=== PATIENT | female | born 1980 | race Caucasian/White ===

== ENCOUNTER 2019-12-30 12:29 | Emergency (ER) | payer OTHER, SELFPAY ==
[2019-12-30 12:39] VITALS: BP 121/74; PULSE 72; RESP 16; TEMP 36.6; O2SAT 97
--- NOTE | 2019-12-30 13:20 | ED.BACK ---
HPI - Back Pain/Injury General Chief Complaint: Back Pain/Injury Stated Complaint: Back pain Time Seen by Provider: 12/30/19 13:21 Source: patient and RN notes reviewed Mode of arrival: ambulatory Limitations: no limitations History of Present Illness HPI Narrative: 39-year-old female presents with concern for low back pain, particularly on the right. Reports today before the pain happened she was doing heavy cleaning to her house, pulling weeds. Reports she woke melanite when she rolled over she felt a spasming in her right lower back. She denies abdominal pain, nausea and vomiting, dysuria, hematuria, frequency, urgency. Denies trauma, injury to the back. Reports she is been using ibuprofen with little relief. MD elicited complaint: back pain Related Data Home Medications Medication Instructions Recorded Confirmed sertraline 50 mg PO DAILY 12/30/19 12/30/19 Allergies Allergy/AdvReac Type Severity Reaction Status Date / Time No Known Allergies Allergy Verified 12/30/19 12:48 Review of Systems Review of Systems: Narrative: CONSTITUTIONAL: Denies malaise, chills, sweats, or fever. CARDIOVASCULAR: Denies chest pain, palpitations, or edema. RESPIRATORY: Denies cough or dyspnea. GASTROINTESTINAL: Denies abdominal pain, nausea, vomiting, diarrhea, bloody, or mucous stools. Denies loss of bowel function GENITOURINARY: Denies dysuria or hematuria. Denies loss of bladder function, perianal anesthesia SKIN: Denies rash or itching. MUSCULOSKELETAL: Reports right low back pain and spasming. Denies joint pain, or myalgia. NEUROLOGIC: Denies numbness, weakness All systems reviewed & are unremarkable except as noted in HPI and below PMFSH Comments At time of signature, agree with nursing past medical, surgical, social and family history. There is no relevant family history pertinent to the presenting complaint Exam Narrative: Exam Narrative: GENERAL: Well-appearing, well-nourished, and in no acute distress. HEAD: Normocephalic, atraumatic. EYES: PERRLA and EOMI. NECK: Supple. No lymphadenopathy. CHEST: Clear to auscultation. No respiratory distress. HEART: Regular rate and rhythm. Distal pulses palpable and equal, cap refill <3 seconds ABDOMEN: Soft, nontender, nondistended, normal active bowel sounds, no palpable or pulsatile masses. No CVA tenderness MUSCULOSKELETAL: Normal range of motion and strength in all extremities; 5/5 strength with hip flexion and extension, dorsiflexion and extension, knee flexion and extension, plantar flexion and extension. Normal sensation in dermatomal distributions with sensitivity to light touch and pain. No midline back tenderness to palpation. No paraspinal tenderness. Transfers from lying to sitting to standing. SKIN: Warm, dry, no rash. No ecchymosis, erythema, open wounds to back. NEURO: No focal deficits. Alert and oriented x3. Reflexes intact. Normal gait. PSYCH: Normal mood and affect Course Course Emergency Course: Patient is aware of diagnosis, understands and agrees to treatment plan. Anticipatory guidance given. Patient agrees to follow-up as directed and is aware of reasons to seek care at the emergency department. Portions of this record may have been created with voice recognition software Vital Signs Vital signs: Vital Signs Temperature 97.9 F 12/30/19 12:39 Pulse Rate 72 12/30/19 12:39 Respiratory Rate 16 12/30/19 12:39 Blood Pressure 121/74 12/30/19 12:39 Pulse Oximetry 97 12/30/19 12:39 Temperature 97.9 F 12/30/19 12:39 Pulse Rate 72 12/30/19 12:39 Respiratory Rate 16 12/30/19 12:39 Blood Pressure 121/74 12/30/19 12:39 Pulse Oximetry 97 12/30/19 12:39 Reviewed. MDM - Back Pain/Injury MDM Narrative Medical decision making narrative: No risk factors or findings concerning for epidural abscess, diskitis, vertebral osteomyelitis, cord compression, cauda equina, vertebral fracture or bone malignancy, AAA, or pyelonephritis. Patient ins
== END 2019-12-30 13:31 | disposition home or self-care (01) ==
PROVIDERS: Emergency Provider Nurse Practitioner
DX: M54.5 Low back pain (principal); F41.9 Anxiety disorder, unspecified
CPT/HCPCS: 99213; G0463

== ENCOUNTER 2022-09-21 10:01 | Outpatient (CLI) | payer OTHER, SELFPAY ==
--- NOTE | ~2022-09-21 | MM_ITS ---
EXAMINATION: MM screening ben BI w kristopher HISTORY: Screening TECHNIQUE: Craniocaudal and mediolateral oblique 3-D tomosynthesis images were obtained and synthetic 2-D images were generated. CAD analysis was submitted and interpreted. COMPARISON: No prior mammogram is available for comparison at this institution. BREAST PARENCHYMAL COMPOSITION: There are scattered areas of fibroglandular density. FINDINGS: There is no evidence of suspicious mass, calcification, or architectural distortion to sugg est malignancy in either breast. There has been no suspicious interval change. IMPRESSION: 1. No mammographic evidence of malignancy. 2. Recommend routine screening mammography in one year. BI-RADS Category 1: Negative Reviewed, dictated and finalized at location A.
== END 2022-09-21 10:02 | disposition home or self-care (01) ==
LOC: ANHIMG 10:07
PROVIDERS: Visit Provider Obstetrics & Gynecology
DX: Z12.31 Encounter for screening mammogram for malignant neoplasm of breast (principal)
CPT/HCPCS: 77063; 77067

== ENCOUNTER 2024-08-06 09:45 | Outpatient (CLI) | payer OTHER, SELFPAY ==
--- NOTE | ~2024-08-06 | MM_ITS ---
EXAMINATION: MM screening ben BI w kristopher HISTORY: Screening TECHNIQUE: Craniocaudal and mediolateral oblique 3-D tomosynthesis images were obtained and synthetic 2-D images were generated. CAD analysis was submitted and interpreted. COMPARISON: 09/21/2022 BREAST PARENCHYMAL COMPOSITION: Not dense: There are scattered areas of fibroglandular density. FINDINGS: There is no evidence of suspicious mass, calcification, or architectural distortion to sugg est malignancy in either breast. There has been no suspicious interval change. IMPRESSION: 1. No mammographic evidence of malignancy. 2. Recommend routine screening mammography in one year. BI-RADS Category 1: Negative Reviewed, dictated and finalized at location B. IONARY EDITOR
--- OUTSIDE RECORDS SUMMARY | 2024-08-06 10:01 | XMS_ITS ---
Care Plan - [facility] Created on: August 06, 2024 RAMIRO FLORES : 1980 Sex: Female Author Organization [facility] Address [address] [place] [address] Phone Care Team Providers Care Private Wealth Advisor Name Role Phone MARIAELENA PHAM Primary Care Provider Azul SPANGLER MD, GARCÍA C Unavailable [phone]
--- OUTSIDE RECORDS SUMMARY | 2024-08-06 10:01 | XMS_ITS | Encounter Summary ---
Author Organization [facility] Address [address] [place] [address] Care Team Providers Care Machine Sprayer Name Role Phone Unavailable Primary Care Provider Unavailabl e Encounter Details Date Type Department Care Team (Late st Contact Info) Description 11/20/2017 Lab Requisition [facility] Lab [address] [place] [id number] Marcelo Hargrove MD [facility] [address] Social History Tobacco Use Types Packs/Day Years Used Date Smoking Tobacco: Never Assessed Sex and Gender Information Value Date Recorded Sex Assigned at Not on file Gender Identity Not on file Sexual Orientation Not on file documented as of this encounter Plan of Treatment Not on file documented as of this encounter Procedures Procedure Name Priority Date/Time Associated Diagnosis Comments DERMATOPATHOLOGY Routine 11/19/2017 12:0 0 AM CDT documented in this encounter Results * DERMATOPATHOLOGY (11/19/2017 12:00 AM CDT) Case Report Dermatopathology Report Case: [id number] Authorizing Provider: Marcelo Hargrove MD Collected: 11/19/2017 12:00 AM Pathologist: Arun Mata MD Received: 11/20/2017 08:38 AM Specimen: Skin, left upper lid lateral 8 4:52 PM CDT DERMATOPATHOLOGY LABORATORY Final Diagnosis Specimen A. SKIN, left upper lid lateral: VERRUCA VULGARIS (B07.8) (see microscopic description) 8 4:52 PM CDT DERMATOPATHOLOGY LABORATORY Clinical History VV vs tag R/O SCCIS. 8 4:52 PM CDT DERMATOPATHOLOGY LABORATORY Gross Description Specimen A: Received is one formalin filled container labeled with the patient's name and designated left upper lid lateral. The specimen consists of a shave biopsy measuring [id number]. Jar 0. 4:52 PM T DERMATOPATHOLOGY LABORATORY Microscopic Description Specimen A. SKIN, left upper lid lateral: There is digitated epidermal hyperplasia, hypergranulosis, vacuolated granular layer cells, and compact hyperorthokeratosis . Additional deeper sections were obtained and reviewed. 4:52 PM T DERMATOPATHOLOGY LABORATORY Disclaimer An external and internal positive and negative controls are appropriate for the histochemical, immunohistochemical and immunofluorescence stain(s) in this case (if any), except where stated explicitly. The performance characteristics of the stain(s) cited in this report were developed and its performance characteristic determined by the Dermatopathology Laboratory at [facility]. These tests need not be, and therefore are not, approved by the [place] Food and Drug Administration. The tests are used for clinical purposes. Billing Codes Specimen Charges Stain Charges 35020 1 4:52 PM CDT DERMATOPATHOLOGY LABORATORY Embedded Images 4:52 PM T DERMATOPATHOLOGY LABORATORY Pathology/Cytolog y TISSUE SPECIMEN FROM SKIN / Unknown 11/19/2017 11/20/2017 8:38 AM CDT Marcelo Hargrove MD LAB - PATHOLOGY/CYTO LOGY ORDERABLES DERMATOPATHOLOGY LABORATORY [facility] - Department of Dermatology [address] [place] [address] 5th Floor Lab B [address] [phone] documented in this encounter Visit Diagnoses Not on filedocumented in this encounter
--- OUTSIDE RECORDS SUMMARY | 2024-08-06 10:01 | XMS_ITS | Clinical Summary ---
Author Organization [facility] Address [address] [place] [address] Phone Care Team Providers Care Wheel Shop Supervisor Name Role Phone David Kenny MD Primary Care Provider [phone] Allergies No known active allergies Medications sertraline (ZOLOFT) 50 MG Tablet Take 50 mg by mouth daily. Active montelukast (SINGULAIR) 10 MG Tablet Take 10 mg by mouth every evening. Active ondansetron (ZOFRAN) 4 MG Tablet Take 1 Tab by mouth every 8 hours as needed for Nausea - 1st line. 10 Tab 9 Active traMADol (ULTRAM) 50 MG Tablet Take 1 Tab by mouth every 8 hours as needed for Moderate or more severe pain. 15 Tab 9 Active raNITIdine (ZANTAC) 150 MG TabletIndication s:Gastric erosion, unspecified chronicity TAKE 1 TABLET BY MOUTH TWICE A DAY 180 Tab 9 Active Family History Medical History Relation Name Comments Cancer Father throat Cancer Paternal Grandfather colon Relation Name Status Comments Father Alive Mother Alive Paternal Grandfather Social History Tobacco Use Types Packs/Day Years Used Date Smoking Tobacco: Some Days Cigarettes Smokeless Tobacco: Never Alcohol Use Standard Drinks/Week Comments Yes 0 (1 standard drink = 0.6 oz pur e alcohol) occasional Comments No Sex and Gender Information Value Date Recorded Sex Assigned at Not on file Legal Sex Female 7:36 PM CDT Gender Identity Not on file Sexual Orientation Not on file Last Filed Vital Signs Vital Sign Reading Time Taken Comments Blood Pressure 94/64 09/23/2018 9:30 AM CDT Pulse 58 09/23/2018 9:30 AM CDT Temperature 36 C (96.8 F) 09/23/2018 9:30 AM CDT Respiratory Rate 15 09/23/2018 9:30 AM CDT Oxygen Saturation 100% 09/23/2018 9:30 AM CDT Inhaled Oxygen Concentration - - Weight 81.6 kg (180 lb) 09/23/2018 7:34 AM CDT Height 167.6 cm (5' 6 ) 09/23/2018 7:34 AM CDT Body Mass Index 29.05 09/23/2018 7:34 AM CDT Plan of Treatment Health Maintenance Due Date Last Done Comments Hepatitis C Virus (HCV) Screening 1980 TdaP Immunization 1980 Hepatitis B Immunization (1 of 3 - 19+ 3-dose series) 01/16/2000 Pap Smear 2002 Cervical Cancer Screening (CCS) 2011 HPV/Cotest 2011 Discussion re Starting/Frequ ency of Mammograms 2021 Influenza Immunization (#1) 2024 SARS-COV-2 Immunization ( season) 2024 06/19/2021 Respiratory Syncytial Virus (RSV) Immunization (Adult) (1 - 1-dose 75+ series) 01/16/2056 Meningococcal Immunization (ACWY) Aged Out No longer eligible based on patient's age to complete this topic Pneumococcal Immunization Combined Aged Out No longer eligible based on patient's age to complete this topic Rotavirus Immunization Aged Out No lo nger eligible based on patient's age to complete this topic Care Teams Wheel Shop Supervisor Relationship Specialty Start Date End Date David Kenny MD [address] [place] [address] PCP - General Cellular Tower Climber 04/24/15
--- OUTSIDE RECORDS SUMMARY | 2024-08-06 10:01 | XMS_ITS ---
Author Organization [facility] Address [address] [place] [address] Phone Care Team Providers Care Professor Of French Name Role Phone MARIAELENA PHAM Primary Care Provider Azul TEE MD, GARCÍA Morales Unavailable [phone] Problems Includes: Active, inactive, and resolved Problems All Visits Onset Date Resolved Date Provider Condition S tatus Age 35+ During 03/13/2017 Unknown GARCÍA TEE MD Resolved Last Documented On 03/19/2018 11:01AM ; [facility] Note: was Closed. Alcohol Use 03/13/2017 Unknown GARCÍA TEE MD Resolved Last Documented On 03/19/2018 11:01AM ; [facility] Note: was Closed. History of Depression 03/13/2017 Unknown GARCÍA TEE MD Resolved Last Documented On 03/19/2018 11:01AM ; [facility] Note: was Closed. History of Diabetes Mellitus 03/13/2017 Unknown GARCÍA TEE MD Resolved Last Documented On 03/19/2018 11:01AM ; [facility] Note: was Closed. History of Thromboembolic Disease 03/13/2017 Unknown GARCÍA TEE MD Resolved Last Documented On 03/19/2018 11:01AM ; [facility] Note: was Closed. Tobacco Use 03/13/2017 Unknown GARCÍA TEE MD Resolved Last Documented On 03/19/2018 11:01AM ; [facility] Note: was Closed. Elderly Multigravida (35 Or Older At Delivery) 02/13/2017 DAI GONZALES WHNP-BC Active Last Documented On 7 9:43AM ; [facility] Maternal Tobacco Use Complic ating Preg / / Puerperium 02/13/2017 Unknown DAI GONZALES WHNP-BC Resolved Last Documented On 7 9:42AM ; [facility] Peripartum History Delivery By Section 02/13/2017 DAI GONZALES WHNP-BC Active Last Documented On 02/13/2017 9:44AM ; [facility] Note: failure to descend Female Infertility 05/10/2015 Unknown DAI LEUNG WHNP-BC Resolved Last Documented On 02/13/2017 9:40AM ; [facility] Note: Unchanged Plan of Treatment Findings Encounter Date She will let us know if she has other problems in the meantime WELL WOMAN - ESTABLISHED PT with GARCÍA TEE MD 08/23/2023 Last Documented On 4 1:36PM ; [facility] Ordered follow-up visit 1 ye ar or as needed WELL WOMAN - ESTABLISHED PT with GARCÍA TEE MD 08/23/2023 Last Documented On 4 1:36PM ; [facility] She will let us know if she has other problems in the meantime WELL WOMAN - ESTABLISHED PT with GARCÍA TEE MD 01/19/2022 Last Documented On 2 3:43PM ; [facility] Ordered follow-up visit 1 ye ar or as needed WELL WOMAN - ESTABLISHED PT with GARCÍA TEE MD 01/19/2022 Last Documented On 2 3:43PM ; [facility] Ordered Clinical summary pro vided to patient POST OP VISIT with DAI GONZALES WHNP-BC 09/25/2017 Last Documented On 8 10:37AM ; [facility] Ordered Clinical summary pro vided to patient RETURN OB EXAM with DAI GONZALES WHNP-BC 08/30/2017 Last Documented On 8 9:02AM ; [facility] Ordered Clinical summary pro vided to patient RETURN OB EXAM with DAI GONZALES WHNP-BC 08/16/2017 Last Documented On 8 2:05PM ; [facility] Ordered Clinical summary pro vided to patient RETURN OB EXAM with DAI GONZALES NP-BC 07/05/2017 Last Documented On 8 10:40AM ; [facility] Ordered Clinical summary pro vided to patient RETURN OB EXAM with DAI GONZALES NP-BC 06/05/2017 Last Documented On 7 9:01AM ; [facility] Ordered Clinical summary pro vided to patient RETURN OB EXAM with DAI GONZALES NP-BC 04/10/2017 Last Documented On 7 9:20AM ; [facility] Ordered Clinical summary pro vided to patient MISSED MENSES with DAI GONZALES NP-BC 02/13/2017 Last Documented On 7 10:03AM ; [facility] Pending Tests Order Diagnosis Results Due Ordering P rovider Radiology @ other - *MAMMOGRAPHY SCREENING MAMMOGRAM Encntr screen mammogram for malignant neoplasm of breast 10/06/23 GARCÍA TEE MD Last Documented On 4 1:36PM ; [facility] Instructions to patient Instructions for patient : B reast Self Exam discussed Last Documented On 4 1:20PM ; [facility] Intervention and counseling on cessation of tobacco use Last Documented On 4 1:04PM ; [facility] Instructions for patient : B reast Self Exam discussed Last Documented On 2 3:14PM ; [facility] Intervention and counseling on cessation of tobacco use Last Documented On 2 3:18PM ; [facility] Instructions for patient : B reast Self Exam discussed and technique reviewed Last Documented On 1 9:01AM ; [facility] Intervention and counseling on cessation of tobacco use Last Documented On 1 8:53AM ; [facility] Instructions for patient : B reast Self Exam discussed and technique reviewed Last Documented On 0 1:07PM ; [facility] Intervention and counseling on cessation of tobacco use Last Documented On 0 1:10PM ; [facility] Instructions for patient : B reast Self Exam discussed and technique reviewed Last Documented On 9 4:23PM ; [facility] Intervention and counseling on cessation of tobacco use Last Documented On 9 4:26PM ; [facility] Instructions for patient : K eep the area around the vulva dry. Allow the area to have exposure to air. Avoid irritants such as fabric softeners and perfumed soaps.~ Last Documented On 7 10:01AM ; [facility] Advised d/c scented bath pro ducts Last Documented On 7 10:01AM ; [facility] Instructions for patient : B reast Self Exam discussed and technique reviewed Last Documented On 6 3:03PM ; [facility] Instructions for patient : B reast Self Exam discussed and technique reviewed Last Documented On 5 2:11PM ; [facility] Instructions for patient : B reast Self Exam discussed and technique reviewed Last Documented On 4 9:54AM ; [facility] Instructions for patient : B reast Self Exam discussed and technique reviewed Last Documented On 3 10:19AM ; [facility] Instructions for patient : B reast Self Exam discussed and technique reviewed Last Documented On 3 1:31PM ; [facility] Education and Decision Aids were provided during visit for: STD screening offered and de clined Last Documented On 4 1:20PM ; [facility] Bone Mineral Density Screeni ng guidelines reviewed Last Documented On 4 1:20PM ; [facility] Patient Education: Daily geno cium and vitamin D Last Documented On 4 1:20PM ; [facility] Patient Education: weight be aring exercise Last Documented On 4 1:20PM ; [facility] Colonoscopy screening guidel poonam discussed Last Documented On 4 1:20PM ; [facility] STD screening offered and de clined Last Documented On 2 3:14PM ; [facility] Bone Mineral Density Screeni ng guidelines reviewed Last Documented On 2 3:14PM ; [facility] Colonoscopy screening guidel poonam discussed Last Documented On 2 3:14PM ; [facility] Candidiasis Vulvovaginitis I nformation Sheet Given Last Documented On 7 10:01AM ; [facility] New OB form given to patient SAB precautions reviewed and pnv samples given. Advised H1N1 and seasonal flu vaccine Last Documented On 7 9:35AM ; [facility] She should be on a vitamin with at least 400 mcg of folic acid daily for at least 2-3 months prior to conception. She needs to quit smoking. Smoking may impare fertility and pt pt at higher risk for pre term labor, pre term delivery, intrautering growth restriction and low weight. She expresses understanding Last Documented On 3 10:30AM ; [facility] Counseling about preconcepti on The ACOG pamphlet Good Health Before is given and discussed. She will let us know when she misses menses and has symptoms for evaluation Last Documented On 3 10:31AM ; [facility] Assessments Includes: Assessments for all patient encounters Findings Encounter Date Fibrocystic disease of breast WELL WOMAN - ESTABLISHED PT with GARCÍA TEE MD 08/23/2023 Last Documented On 4 1:36PM ; [facility] NORMAL FEMALE EXAM WELL WOMAN - ESTABLISHED PT w ith GARCÍA TEE MD 08/23/2023 Last Documented On 4 1:36PM ; [facility] Screening Malig. Neoplasm Rectum WELL WO MAN - ESTABLISHED PT with GARCÍA TEE MD 08/23/2023 Last Documented On 4 1:36PM ; [facility] Fibrocystic disease of breast WELL WOMAN - ESTABLISHED PT with GARCÍA TEE MD 01/19/2022 Last Documented On 2 3:43PM ; [facility] NORMAL FEMALE EXAM WELL WOMAN - ESTABLISHED PT w ith GARCÍA TEE MD 01/19/2022 Last Documented On 2 3:43PM ; [facility] Screening Malig. Neoplasm Rectum WELL WO MAN - ESTABLISHED PT with GARCÍA TEE MD 01/19/2022 Last Documented On 2 3:43PM ; [facility] URINARY FREQUENCY WELL WOMAN - ESTABLISHED PT wi th GARCÍA TEE MD 01/19/2022 Last Documented On 2 3:43PM ; [facility] Fibrocystic disease of breast WELL WOMAN - ESTABLISHED PT with GARCÍA TEE MD 12/23/2020 Last Documented On 1 9:16AM ; [facility] NORMAL FEMALE EXAM WELL WOMAN - ESTABLISHED PT w ith GARCÍA TEE MD 12/23/2020 Last Documented On 1 9:16AM ; [facility] Fibrocystic disease of breast WELL WOMAN EXAM wi th GARCÍA TEE MD 12/21/2019 Last Documented On 0 1:18PM ; [facility] NORMAL FEMALE EXAM WELL WOMAN EXAM with GARCÍA BASILIO MD 12/21/2019 Last Documented On 0 1:18PM ; [facility] Dysfunctional uterine bleeding PROBLEM VISIT wit h GARCÍA TEE MD 07/02/2019 Last Documented On 0 9:14AM ; [facility] Fibrocystic disease of breast WELL WOMAN EXAM wi th GARCÍA TEE MD 12/16/2018 Last Documented On 9 4:35PM ; [facility] NORMAL FEMALE EXAM WELL WOMAN EXAM with GARCÍA BASILIO MD 12/16/2018 Last Documented On 9 4:35PM ; [facility] Routine history a nd physical POST VISIT with GARCÍA TEE MD 10/25/2017 Last Documented On 8 4:37PM ; [facility] POST OP VISIT POST OP VISIT with DAI PECK-DAPHNE 09/25/2017 Last Documented On 8 10:37AM ; [facility] POST OP VISIT PROBLEM VISIT with GARCÍA Walker MD 09/17/2017 Last Documented On 8 12:50PM ; [facility] Routine checkup (6 - 42 wk) RET URN OB EXAM with DAI PECK-DAPHNE 08/30/2017 Last Documented On 8 9:02AM ; [facility] Routine checkup (6 - 42 wk) RET URN OB EXAM with DAI PECK-DAPHNE 08/16/2017 Last Documented On 8 2:05PM ; [facility] Routine checkup (6 - 42 wk) RET URN OB EXAM with DAI PECK-DAPHNE 07/05/2017 Last Documented On 8 10:40AM ; [facility] Routine checkup (6 - 42 wk) RET URN OB EXAM with DAI GONZALES NP-BC 06/05/2017 Last Documented On 7 9:01AM ; [facility] Routine checkup (6 - 42 wk) RET URN OB EXAM with DAI GONZALES NP-BC 04/10/2017 Last Documented On 7 9:20AM ; [facility] Amenorrhea 9 weeks by LMP wi th EDC 4-4-18 MISSED MENSES with DAI GONZALES NP-BC 02/13/2017 Last Documented On 7 10:03AM ; [facility] Albertina albicans vulvovaginitis MISSED MENSES wi th DAI GONZALES NP-BC 02/13/2017 Last Documented On 7 10:03AM ; [facility] Fibrocystic disease of breast BEARINGIZER EXAM with GARCÍA TEE MD 04/09/2016 Last Documented On 6 3:16PM ; [facility] NORMAL FEMALE EXAM BEARINGIZER EXAM with GARCÍA TEE MD 04/09/2016 Last Documented On 6 3:16PM ; [facility] Female infertility CONSULTATION with GARCÍA PANIAGUA MD 05/10/2015 Last Documented On 5 3:21PM ; [facility] Fibrocystic disease of breast BEARINGIZER EXAM with GARCÍA TEE MD 04/05/2015 Last Documented On 5 2:44PM ; [facility] NORMAL FEMALE EXAM BEARINGIZER EXAM with GARCÍA TEE MD 04/05/2015 Last Documented On 5 2:44PM ; [facility] Breast fibrocystic disease BEARINGIZER EXAM with GARCÍA ROLDAN MD 03/09/2014 Last Documented On 4 10:10AM ; [facility] Contraceptive surveillance BEARINGIZER EXAM with GARCÍA ROLDAN MD 03/09/2014 Last Documented On 4 10:10AM ; [facility] NORMAL FEMALE EXAM BEARINGIZER EXAM with GARCÍA TEE MD 03/09/2014 Last Documented On 4 10:10AM ; [facility] Preconception Counseling BEARINGIZER EXAM with GARCÍA HERNÁNDEZ MD 03/09/2014 Last Documented On 4 10:10AM ; [facility] Breast fibrocystic disease BEARINGIZER EXAM with GARCÍA ROLDAN MD 03/05/2013 Last Documented On 3 10:43AM ; [facility] NORMAL FEMALE EXAM BEARINGIZER EXAM with GARCÍA TEE MD 03/05/2013 Last Documented On 3 10:43AM ; [facility] Preconception Counseling BEARINGIZER EXAM with GARCÍA HERNÁNDEZ MD 03/05/2013 Last Documented On 3 10:43AM ; [facility] Breast fibrocystic disease NEW BEARINGIZER EXAM with GARCÍA TEE MD 03/04/2012 Last Documented On 3 1:44PM ; [facility] Contraceptive surveillance NEW BEARINGIZER EXAM with GARCÍA TEE MD 03/04/2012 Last Documented On 3 1:44PM ; [facility] NORMAL FEMALE EXAM NEW BEARINGIZER EXAM with GARCÍA PANIAGUA MD 03/04/2012 Last Documented On 3 1:44PM ; [facility] Instructions Includes: Instructions for all patient encounters Instructions to patient Instructions for patient : B reast Self Exam discussed Last Documented On 4 1:20PM ; [facility] Intervention and counseling on cessation of tobacco use Last Documented On 4 1:04PM ; [facility] Instructions for patient : B reast Self Exam discussed Last Documented On 2 3:14PM ; [facility] Intervention and counseling on cessation of tobacco use Last Documented On 2 3:18PM ; [facility] Instructions for patient : B reast Self Exam discussed and technique reviewed Last Documented On 1 9:01AM ; [facility] Intervention and counseling on cessation of tobacco use Last Documented On 1 8:53AM ; [facility] Instructions for patient : B reast Self Exam discussed and technique reviewed Last Documented On 0 1:07PM ; [facility] Intervention and counseling on cessation of tobacco use Last Documented On 0 1:10PM ; [facility] Instructions for patient : B reast Self Exam discussed and technique reviewed Last Documented On 9 4:23PM ; [facility] Intervention and counseling on cessation of tobacco use Last Documented On 9 4:26PM ; [facility] Instructions for patient : K eep the area around the vulva dry. Allow the area to have exposure to air. Avoid irritants such as fabric softeners and perfumed soaps.~ Last Documented On 7 10:01AM ; [facility] Advised d/c scented bath pro ducts Last Documented On 7 10:01AM ; [facility] Instructions for patient : B reast Self Exam discussed and technique reviewed Last Documented On 6 3:03PM ; [facility] Instructions for patient : B reast Self Exam discussed and technique reviewed Last Documented On 5 2:11PM ; [facility] Instructions for patient : B reast Self Exam discussed and technique reviewed Last Documented On 4 9:54AM ; [facility] Instructions for patient : B reast Self Exam discussed and technique reviewed Last Documented On 3 10:19AM ; [facility] Instructions for patient : B reast Self Exam discussed and technique reviewed Last Documented On 3 1:31PM ; [facility] Education and Decision Aids were provided during visit for: STD screening offered and de clined Last Documented On 4 1:20PM ; [facility] Bone Mineral Density Screeni ng guidelines reviewed Last Documented On 4 1:20PM ; [facility] Patient Education: Daily geno cium and vitamin D Last Documented On 4 1:20PM ; [facility] Patient Education: weight be aring exercise Last Documented On 4 1:20PM ; [facility] Colonoscopy screening guidel poonam discussed Last Documented On 4 1:20PM ; [facility] STD screening offered and de clined Last Documented On 2 3:14PM ; [facility] Bone Mineral Density Screeni ng guidelines reviewed Last Documented On 2 3:14PM ; [facility] Colonoscopy screening guidel poonam discussed Last Documented On 2 3:14PM ; [facility] Candidiasis Vulvovaginitis I nformation Sheet Given Last Documented On 7 10:01AM ; [facility] New OB form given to patient SAB precautions reviewed and pnv samples given. Advised H1N1 and seasonal flu vaccine Last Documented On 7 9:35AM ; [facility] She should be on a vitamin with at least 400 mcg of folic acid daily for at least 2-3 months prior to conception. She needs to quit smoking. Smoking may impare fertility and pt pt at higher risk for pre term labor, pre term delivery, intrautering growth restriction and low weight. She expresses understanding Last Documented On 3 10:30AM ; [facility] Counseling about preconcepti on The ACOG pamphlet Good Health Before is given and discussed. She will let us know when she misses menses and has symptoms for evaluation Last Documented On 3 10:31AM ; [facility] Medical Equipment - Implanted Devices Includes: Current and historical Devices No Medical Equipment Recorded Medications Includes: Current and historical Medications Current Medications (continue as prescribed) Sertraline HCl 50MG Oral Tablet 07/17/2017 Provider: GARCÍA TEE MD Diagnosis: Encounter for christensen prvsn of normal , third trimester One tablet daily Last Documented On 07/17/2017 10:06AM By GARCÍA TEE MD ; [facility] Past Medications on file Bactrim DS 800-160 MG Oral Tablet 01/02/2022 - 022 Provider: Diagnosis: Last Documented On 01/19/2022 2:51PM By Delfino DICKERSON ; [facility] Macrobid 100 MG Oral Capsule 11/10/2020 - 12/23/2020 Christiano suero: GARCÍA TEE MD Diagnosis: One tablet twice a day (october) Last Documented On 1 8:51AM By MARIELOS DICKERSON ; [facility] ValACYclovir HCl 1GM Oral Tablet 07/17/2017 - 12/21/2019 Provider: GARCÍA TEE MD Diagnosis: Encounter for christensen prvsn of normal , third trimester One tablet daily Last Documented On 0 12:59PM By MARIELOS DICKERSON ; [facility] Terazol 7 0.4% Vaginal Cream 02/13/2017 - 03/15/2017 P rovider: DAI GONZALES [facility] Diagnosis: as directedsert one applicator full pv q hs x 7 nocs Last Documented On 7 10:13AM By DAI GONZALES [facility] ; [facility] Classic 28-0.8MG Oral Tablet 02/13/2017 - 07/2018 Provider: Diagnosis: Last Documented On 9 3:40PM By MARIELOS DICKERSON ; [facility] CVS Probiotic Capsule, conventional 04/09/2016 - 02/13 Provider: Diagnosis: Last Documented On 02/13/2017 9:41AM By MARY DICKERSON ; [facility] Calcium 600 MG Tablet 04/09/2016 - 02/13/2017 Provider : Diagnosis: Last Documented On 02/13/2017 9:41AM By MARY DICKERSON ; [facility] HM Vitamin B12 500 MCG Tablet 04/09/2016 - 02/13/2017 Provider: Diagnosis: Last Documented On 02/13/2017 9:41AM By MARY DICKERSON ; [facility] B-Complex/Vitamin C Tablet 04/09/2016 - 02/13/2017 Pro vider: Diagnosis: Last Documented On 02/13/2017 9:41AM By MARY DICKERSON ; [facility] ZyrTEC Allergy 10 MG Tablet 04/09/2016 - 02/13/2017 Pr ovider: Diagnosis: Last Documented On 02/13/2017 9:41AM By MARY DICKERSON ; [facility] Singulair 10 MG Tablet 04/05/2015 - 07/02/2019 Provide r: Diagnosis: Last Documented On 0 8:42AM By MARIELOS DICKERSON ; [facility] NuvaRing 0.12-0.015 MG/24HR VA RING 02/19/2014 - 03/19/2014 Provider: GARCÍA Petit Diagnosis: Sig: use vaginally x 3 weeks, out x 1 week Last Documented On 02/19/2014 2:15PM By GARCÍA TEE MD ; [facility] NuvaRing 0.12-0.015 MG/24HR VA RING 02/19/2014 - 02/19/2014 Provider: GARCÍA Petit Diagnosis: Sig: use vaginally x 3 weeks, out x 1 week Last Documented On 02/19/2014 2:15PM By GARCÍA TEE MD ; [facility] NuvaRing 0.12-0.015 MG/24HR VA RING 10/26/2013 - 02/19/2014 Provider: GARCÍA Petit Diagnosis: Sig: use vaginally x 3 weeks, out x 1 week Last Documented On 02/19/2014 11:56AM By GARCÍA TEE MD ; [facility] NuvaRing 0.12-0.015 MG/24HR VA RING 03/04/2012 - 10/26/2013 Provider: GARCÍA Petit Diagnosis: Sig: use vaginally x 3 weeks, out x 1 week Last Documented On 10/26/2013 4:01PM By GARCÍA TEE MD ; [facility] Sertraline HCl 50 MG OR TABS 03/04/2012 - 03/05/2013 P rovider: Diagnosis: Last Documented On 3 10:06AM By RAMIREZ DICKERSON ; [facility] NuvaRing 0.12-0.015 MG/24HR VA RING 03/03/2012 - 03/04/2012 Provider: GARCÍA Petit Diagnosis: Sig: use vaginally x 21 days, out x 7 days Last Documented On 03/04/2012 9:57AM By TERESA DICKERSON ; [facility] traMADol HCl 50 MG OR TABS 02/19/2012 - 03/05/2013 Pro vider: Diagnosis: Last Documented On 3 10:06AM By RAMIREZ DICKERSON ; [facility] Tobramycin-dexAMETHasone 0.3-0.1% OP SUSP 02/03/2012 - 03/04/2012 Provider: Diagnosis: Last Documented On 03/04/2012 9:59AM By TERESA DICKERSON ; [facility] NuvaRing 0.12-0.015 MG/24HR VA RING 02/03/2012 - 03/04 Provider: Diagnosis: Last Documented On 03/04/2012 10:37AM By GARCÍA TEE MD ; [facility] Triamcinolone Acetonide 0.1% EX CREA 02/03/2012 - 02/15 Provider: Diagnosis: Last Documented On 03/04/2012 9:57AM By TERESA DICKERSON ; [facility] Sertraline HCl 50 MG OR TABS 02/03/2012 - 03/04/2012 Christiano álvarezder: Diagnosis: Last Documented On 03/04/2012 9:58AM By TERESA DICKERSON ; [facility] Omeprazole-Sodium Bicarbonate 40-1100 MG OR CAPS 02/03/2012 - 03/09/2014 Provider: Diagnosis: Last Documented On 03/09/2014 9:48AM By LAWRENCE KOHLER LPN ; [facility] Medications Administered Includes: Administered Medications in patient's chart Medications Administered Diagnosis Date Pro vider Fluzone Quadrivalent 0.5 ML IM JOSIAH Encounter for immunization 04/10/2017 DAI GONZALES [facility]- Last Documented On 7 9:19AM By MARY DICKERSON ; [facility] Vital Signs Includes: Vital Signs from 08/06/2023 through 08/06/2024 Vital Name 08/23/2023 12:51P Blood Pressure Sitting (mmHg) 112/78 Temp-Oral (F) 98 Height (in) 66 Weight (lb) 201.6 Body Mass Index 32.5 Body Surface Area 2 Last Documented: On 08/23/2023 1:01PM ; [facility] Results Includes: Results from 08/06/2023 through 08/06/2024 LIQUID BASED PAP W HPV [facility] Laboratory Ordered by GARCÍA TEE MD on 08/23/19 [address] [place], [address] Collected: 08/23/2023 Report ed: 08/28/2023 09:06 tel: Last Documented On 4 9:18AM ; [facility] Reviewed on 11/13/2023; All test results are final unless otherwise noted. HPV mRNA E6/E7 Not Detected (Not Detected) N (Normal) Last Documented On 4 5:48PM ; [facility] Note: Methodology: Extrusion Technician-Mediate d AmplificationThis assay detects E6/E7 viral messenger RNA (mRNA) from 14high-risk HPV types (16,18,31,33,35,39,45,51,52,56,58,59,66,68).Cervical sources are required for HPV testing.If a vaginal source from a patient who has had atotal hysterectomy with removal of cervix wassubmitted, please contact the testing laboratoryfor alternative testing options.For additional information, please refer tohttp://education.Learn It Live/faq/QMP426v2(This link if provided for information/educational purposes only.)THIS TEST WAS PERFORMED AT:[facility] [address] [address]ZVJRXVCJORDAN THEODORE MDEXPLANATORY NOTE:The Pap is a screening test for cervical cancer. It isnot a diagnostic test and is subject to false negativeand false positive results. It is most reliable when asatisfactory sample, regularly obtained, is submittedwith relevant clinical findings and history, and whenthe Pap result is evaluated along with historic andcurrent clinical information.THIS TEST WAS PERFORMED AT:[facility] [address] [address]DGTMQNDMAURICIO CASTILLOesponsible Observer: (rfl) LIQUID BASED PAP W HPV See Note None Last Documented On 4 5:48PM ; [facility] Note: None given07/31/2407WNLCervi xSatisfactory for evaluation.Endocervical/transformation zone componentpresent.Cytology Results: Negative for intraepitheliallesion or malignancy.This Pap test has been evaluated with computerassisted technology.SRR, CT(ASCP)CT Screening Location: [address] [address]Npbvahypsyj Observer: (ARC) PAP SMEAR ABNORMAL? NO None Last Documented On 4 5:48PM ; [facility] Note: Responsible Observer: (ARC) Reported Physicians [facility] Franny johnson Ordered by GARCÍA TEE MD on 08/23/19 [address] [facility], [place], [address] Collected: 08/23/2023 Report ed: 08/28/2023 09:06 tel: Last Documented On 4 9:18AM ; [facility] Reviewed on 11/13/2023; All test results are final unless otherwise noted. Reported Physicians See Note None Last Documented On 11/12/2023 5:48PM ; [facility] Note: Reported Physicians:Ordering: García Tee CAttending: GARCÍA TEE History of Present Illness History of Present Illness not supported for this document type No History of Present Illness Recorded Social History Description Last Updated Current smoker : about a pac k per week smoked since in her 20's 'One social weekend per month' NTQS 08/23/2023 Last Documented On 4 1:36PM ; [facility] Tobacco use 12/21/2019 Last Documented On 0 1:18PM ; [facility] Social history unchanged 12/16/2018 Last Documented On 9 4:35PM ; [facility] Alcohol use 12/16/2018 Last Documented On 9 4:35PM ; [facility] Exercising regularly 12/16/2018 Last Documented On 9 4:35PM ; [facility] Marital history 12/16/2018 Last Documented On 9 4:35PM ; [facility] Not using drugs 12/16/2018 Last Documented On 9 4:35PM ; [facility] Sexually active 12/16/2018 Last Documented On 9 4:35PM ; [facility] Sexually active 5 weeks 10/25 Last Documented On 8 4:37PM ; [facility] Smoking status : Former smoker 8 Last Documented On 8 10:37AM ; [facility] Procedures and Surgical History Includes: Procedures from 08/06/2023 through 08/06/2024 Procedures Code Diagnosis Performing Provider Service Location Service Date FIT TEST-SCREENING FOR FECAL OCCULT BLOOD (CLIA WAIVED) [address] Encounter for screening for malignant neoplasm of colon GARCÍA TEE MD [facility] 08/23/2023 Last Documented On 4 1:15PM ; [facility] Surgical History Last Updated History of tubal ligation 09/11/2017 with repeat c/s TK 12/23/2020 Last Documented On 1 9:16AM ; [facility] Recent change to surgical history 2018 Last Documented On 9 4:35PM ; [facility] Surgical / procedural histor y LEFT KNEE SURGERY ~tubes removed from both ears 12/2014 (placed about a year before) ~C/S with tubal 09/11/17 TCK ~Breast reduction 03/201812/16/2018 Last Documented On 9 4:35PM ; [facility] History of surgery c/s TCK 08/30/2017 Last Documented On 8 9:02AM ; [facility] Medical History Includes: Medical History in patient's chart Description Last Updated Last mammogram date: October or November 2022 WNL per pt at [facility] in [place] 08/23/2023 Last Documented On 4 1:36PM ; [facility] History of screening mammogr am was performed Baseline; October or November 2022 at [place] WNL per pt 08/23/2023 Last Documented On 4 1:36PM ; [facility] LMP: 07/31/2023 08/23/2023 Last Documented On 4 1:36PM ; [facility] Last pap smear date 01/19/2022 08/23/2023 Last Documented On 4 1:36PM ; [facility] Anxiety 01/19/2022 Last Documented On 2 3:43PM ; [facility] Depression 01/19/2022 Last Documented On 2 3:43PM ; [facility] Contraception: tubal with rpt section TK 12/23/2020 Last Documented On 1 9:16AM ; [facility] History of cervical Pap smear 12/21/2019 12/23/2020 Last Documented On 1 9:16AM ; [facility] Recent change in medical history 019 Last Documented On 9 4:35PM ; [facility] A colonoscopy was performed years ago Last Documented On 9 4:35PM ; [facility] Baby thriving C/S 09/11/17 AMH 39- 0/7 we eks 8# 1oz Dorothea Camilo 10/25/2017 Last Documented On 8 4:37PM ; [facility] Infant is bottle-feeding 10/25/2017 Last Documented On 8 4:37PM ; [facility] History of Pap smear done 04/09/201604/2018 Last Documented On 8 10:37AM ; [facility] Result: normal 09/25/2017 Last Documented On 8 10:37AM ; [facility] section x 2 09/17/2017 Last Documented On 8 12:50PM ; [facility] Status post tubal ligation 09/11/2017 TCK 09/17/2017 Last Documented On 8 12:50PM ; [facility] Sexually active with 1 partners in the l ast year 09/17/2017 Last Documented On 8 12:50PM ; [facility] Para 2 09/17/2017 Last Documented On 8 12:50PM ; [facility] 2 08/30/2017 Last Documented On 8 9:02AM ; [facility] History of depression MOB po st : meds for 3-4 months: zoloft: helped: no problems since then; MOB mom and sister and everyone on her maternal side 08/30/2017 Last Documented On 8 9:02AM ; [facility] Family History Includes: Family History in patient's chart Description Last Updated Paternal grandfather's histo ry of malignant neoplasm of large intestine pgf in his 60's 08/23/2023 Last Documented On 4 1:36PM ; [facility] dad- throat cancer 2009 remission and dx with different throat cancer 201712/16/2018 Last Documented On 9 4:35PM ; [facility] Maternal grandfather's history of diabet es mellitus maternal grandfather 12/16/2018 Last Documented On 9 4:35PM ; [facility] Spouse name: Antelmo 04/05/2015 Last Documented On 5 2:44PM ; [facility] Family history of diabetes mellitus mate rnal grandfather 04/05/2015 Last Documented On 5 2:44PM ; [facility] Family history of malignant neoplasm of the large intestine pgf in his 60's 06/29/2012 Last Documented On 3 1:44PM ; [facility] Review of Systems Review of Systems not supported for this document type No Review of Systems Recorded Mental Status Description Anxiety Functional Status No Functional Status Recorded Physical Exam Physical Exam not supported for this document type No Physical Exam Recorded Immunizations Includes: Immunizations in patient's chart Vaccine Dose # Date Site Reaction(s) Status Source Influenza (Quadrivalent)36 mo.& older PF 0.5ml (SD) 1 04/10/2017 Left Arm Complete (Administered) [facility] Last Documented On 7 9:17AM ; [facility] Allergies Includes: Active, inactive, and resolved Allergies Substance Type Reaction Onset Date Resolved Date Statu s Codeine Allergy 03/04/2012 Resolved Last Documented On 4 1:00PM ; [facility] Encounters Includes: Encounters from 08/06/2023 through 08/06/2024 Encounter Provider Location Date Check-In Time Check-Out Time Diagnosis WELL WOMAN - ESTABLISHED PT GARCÍA TEE MD [facility] 08/23/19 24 12:50PM 1:39PM Breast Fibrocystic Disease,Screen ing Malig. Neoplasm Rectum,Normal Female Exam Insurance Includes: Active Insurance Policies Plan Name Member ID Group # Subscriber Relationship Effect leandra Dates 1 - [employer] [facility] [id number] SANDRA ANTELMO Dias Clinical Notes Includes: Signed Clinical Notes starting from 07/06/2022 * Progress note Date Encounter Last Documented by 08/23/2023 WE[facility] WOMAN - ESTABLISHED PT Last documented on 08/23/2023; 1:36 PM, GARCÍA TEE MD; [facility] Active Problems & Conditions - Elderly Multigravida (35 Or Older At Delivery) - Peripartum History Delivery By Section - failure to descend Chief Complaint The Chief Complaint is: WWE and no c/o. History of Present Illness RAMIRO FLORES is a 43 year old female. - Allergy list reviewed - Medication list reviewed - Primary Care Provider: Dr Flowers Current Medication - Sertraline HCl 50MG Oral Tablet 50 MG One tablet daily, 16 days, 0 refills Past Medical/Surgical History Other: Anxiety Depression Reported: LMP: 07/31/2023, Last pap smear date 01/19/2022 result: normal, Last mammogram date: October or November 2022 WNL per pt at [facility] in [place], and Contraception: tubal with rpt section 09/11/2017 TK. Surgical / Procedural: Surgical / procedural history LEFT KNEE SURGERY tubes removed from both ears 12/2014 (placed about a year before) C/S with tubal 09/11/17 TCK Breast reduction 03/2018. : Baby thriving C/S 09/11/17 AMH 39- 0/7 weeks 8# kalina Camilo , 2, para 2, and history of the : section x 2. Sexual: Sexually active with 1 partners in the last year. Other: Screening mammogram was performed Baseline; October or November 2022 at [place] WNL per pt. Cervical Pap smear 12/21/2019 Diagnoses: Depression MOB post : meds for 3-4 months: zoloft: helped: no problems since then; MOB mom and sister and everyone on her maternal side Surgical: - Surgery c/s TCK - Tubal ligation 09/11/2017 with repeat c/s TK Social History Social history unchanged. Tobacco use: Current smoker: about a pack per week smoked since in her 20's 'One social weekend per month' NTQS. Alcohol: Alcohol use. Drug Use: Not using drugs. Habits: Exercising regularly. Marital: Marital history . Sexual: Sexually active 5 weeks . Family History Spouse name: Antelmo Dad- throat cancer 2010 remission and dx with different throat cancer 2018 Paternal grandfather's: Malignant neoplasm of large intestine pgf in his 60's Maternal grandfather's: Diabetes mellitus maternal grandfather Review Of Systems Gastrointestinal: No nausea, no vomiting, and no hematochezia. Genitourinary: No change in urinary frequency and no feelings of urinary urgency. No urinary loss of control and no incontinence. No dysuria, no stress incontinence, does not feel like bladder is falling out, no vaginal itching or burning, and no vaginal pain during intercourse. No vaginal dryness and no unexplained vaginal bleeding. Musculoskeletal: No arthralgias and no localized joint swelling. Physical Findings - Vitals taken 08/23/2023 12:51 pm BP-Sitting 112/78 mmHg Temp-Oral 98 F Height 66 in Weight 201 lbs 9.6 oz Body Mass Index 32.5 kg/m2 Body Surface Area 2 m2 Standard Measurements: - Patient was not observed to be obese. General Appearance: - Well developed. - Well nourished. - In no acute distress. Neck: Thyroid: - Showed no abnormalities. Lymph Nodes: - Supraclavicular lymph nodes were not enlarged. - Axillary lymph nodes were not enlarged. Breasts: General/bilateral: - Diffuse fibrous tissue in the breast(s). - Diffuse fibrous tissue was found in both breasts. Right Breast: - Nipple was normal. - No abnormal secretion. - No mass was found. - No tenderness. Left Breast: - Nipple was normal. - No abnormal secretion. - No mass was found. - No tenderness. Lungs: - Clear to auscultation. Cardiovascular: Heart Rate And Rhythm: - Normal. Murmurs: - No murmurs were heard. Edema: - Not present. Veins: - No spider veins. - No varicose veins seen. Back: - No right costovertebral angle tenderness. - No left costovertebral angle tenderness. Abdomen: Palpation: - Abdominal non-tender. - No mass was palpated in the abdomen. Liver: - Not enlarged. Spleen: - Not enlarged. Hernia: - No hernia was discovered. Urinary System: Bladder: - Normal. - Not distended. - Not tender. - Did not have a mass. - Incontinence was not demonstrated with heavy cough. Urethra: - Normal: no lesions. Genitalia: External: - Genitalia showed no abnormalities. - Genitalia exhibited no lesion. Pelvic: - No ovarian mass. Vagina: - Normal: no lesions. - No vaginal discharge was observed. - No cystocele was observed. - No rectocele was observed. Cervix: - Showed no lesion. - Did not demonstrate pain elicited by motion. Uterus: - Mobile. - Contour was not irregular. - Not enlarged. - Not tender. Uterine Adnexae: - Uterine adnexa was not tender. Rectovaginal: - Tissue was normal. Rectal: - Exam: normal. Rectum: - Normal. - Had no mass. Surgery: - Reduction procedure of both breasts Tests Laboratory-based Chemistry: Fecal Analysis: FIT Test-Fecal Occult negative. Pathology: Cytology: Cervical Pap smear. Assessment - Fibrocystic disease of breast - NORMAL FEMALE EXAM - Screening Malig. Neoplasm Rectum Previous Tests Pathology: Cytology: Cervical Pap smear 01/19/2022. Therapy - Intervention and counseling on cessation of tobacco use. - Clinical summary provided to patient. Counseling/Education - Instructions for patient: Breast Self Exam discussed - Patient Education: Daily calcium and vitamin D - Patient Education: weight bearing exercise - Colonoscopy screening guidelines discussed - STD screening offered and declined - Bone Mineral Density Screening guidelines reviewed Plan StartCited - Encntr screen mammogram for malignant neoplasm of breast Radiology @ other/*MAMMOGRAPHY: SCREENING MAMMOGRAM Instructions: screening mammogram; last 09/21/2022 at [place]; Please send a copy to PCP: kvng Salter. EndCited StartCited - Other Follow-up needs mammogram after 09/22/2023; return in one year for WWE (30 min) EndCited - Follow-up visit 1 year or as needed She will let us know if she has other problems in the meantime. Practice Management Use of tobacco assessment performed.
--- OUTSIDE RECORDS SUMMARY | 2024-08-06 10:01 | XMS_ITS | Clinical Summary ---
Author Organization [facility] Address [address] [place] [address] Phone Care Team Providers Care Wood Scaler Name Role Phone MARIAELENA PHAM Primary Care Provider Azul SPANGLER MD, GARCÍA Morales Unavailable [phone] Reason for Visit and Chief Complaint * PHONE CALL Problems Includes: Problems addressed during this encounter and other active Problems All Visits Onset Date Resolved Date Provider Condition S tatus Elderly Multigravida (35 Or Older At Delivery) 02/13/2017 DAI GONZALES WHNP-BC Active Last Documented On 7 9:43AM ; [facility] Peripartum History Delivery By Section 02/13/2017 DAI WARRENNP-BC Active Last Documented On 7 9:44AM ; [facility] Note: failure to descend Plan of Treatment Pending Tests Order Diagnosis Results Due Ordering Christiano suero Radiology @ other - *MAMMOGRAPHY SCREENING MAMMOGRAM Encntr screen mammogram for malignant neoplasm of breast 10/06/23 GARCÍA SPANGLER MD Last Documented On 4 1:36PM ; [facility] Assessments Includes: Assessments from this encounter No Assessments Recorded Medical Equipment - Implanted Devices Includes: Current Devices No Medical Equipment Recorded Medications Includes: Medications discussed during this encounter and other current Medications New / Renewed during this visit GARCÍA SPANGLER MD on 11/10/2020 Macrobid 100 MG Oral Capsule Provider: GARCÍA SPANGLER MD 7 day supply: 14 capsule, 0 refills Diagnosis: One tablet twice a day (may substitute) Pharmacy: [address], [address] - Last Documented On 1 8:51AM By MARIELOS DICKERSON ; [facility] Current Medications (continue as prescribed) Sertraline HCl 50MG Oral Tablet 07/17/2017 Provider: GARCÍA SPANGLER MD Diagnosis: Encounter for christensen prvsn of normal , third trimester One tablet daily Last Documented On 07/17/2017 10:06AM By GARCÍA SPANGLER MD ; [facility] Medications Administered Includes: Administered Medications from this encounter No Administered Medications Recorded Results Includes: Results discussed during this encounter No Results Recorded For Specified Dates History of Present Illness Includes: History of Present Illness from this encounter No History of Present Illness Recorded Social History No Social History Recorded - Smoking Status Unknown Medical History Includes: Medical History addressed during this encounter No Medical History Recorded Family History Includes: Family History addressed during this encounter No Family History Recorded Review of Systems Includes: Review of Systems from this encounter No Review of Systems Recorded Mental Status Includes: Mental Status from this encounter No Mental Status Recorded Functional Status Includes: Functional Status from this encounter No Functional Status Recorded Physical Exam Includes: Physical Exam from this encounter No Physical Exam Recorded Allergies Includes: Active Allergies Substance Type Reaction Onset Date Resolved Date Statu s Codeine Allergy 03/04/2012 Resolved Last Documented On 4 1:00PM ; [facility] Encounters Encounter Provider Location Date Check-In Time Check-Out Time Diagnosis * PHONE CALL GARCÍA SPANGLER MD [facility] 1 9:26AM 11:59PM Insurance Includes: Active Insurance Policies Plan Name Member ID Group # Subscriber Relationship Effect leandra Dates 1 - [facility] [id number] ANTELMO FLORES Clinical Notes Includes: Clinical Notes from this encounter No Clinical Notes Recorded
--- OUTSIDE RECORDS SUMMARY | 2024-08-06 10:01 | XMS_ITS | Patient Health Summary ---
Author Organization [facility] [employer] Address [address] [place] [address] Care Team Providers Care Integrated Pest Management Technician Name Role Phone Unavailable Primary Care Provider Unavailabl e Note from [facility],non-owned Affiliates and Associated Physician Practices is amultiple site organization consisting of ambulatory clinics and hospital sitesin [place], [place], [place] and [place]. This disclosure is being madepursuant to the Care Everywhere program and may not contain all information available regarding this patient. Last updated 18.[facility] [employer] Social History Tobacco Use Types Packs/Day Years Used Date Smoking Tobacco: Never Assessed Sex and Gender Information Value Date Recorded Sex Assigned at Not on file Gender Identity Not on file Sexual Orientation Not on file Procedures * DERMATOPATHOLOGY(Performed 11/19/2017) Results * DERMATOPATHOLOGY (11/19/2017 12:00 AM CDT) Case Report Dermatopathology Report Case: [id number] Authorizing Provider: Marcelo Hargrove MD Collected: 11/19/2017 12:00 AM Pathologist: Arun Mata MD Received: 11/20/2017 08:38 AM Specimen: Skin, left upper lid lateral 4:52 PM CDT DERMATOPATHOLOGY LABORATORY Final Diagnosis Specimen A. SKIN, left upper lid lateral: VERRUCA VULGARIS (B07.8) (see microscopic description) 4:52 PM CDT DERMATOPATHOLOGY LABORATORY Clinical History VV vs tag R/O SCCIS. 4:52 PM CDT DERMATOPATHOLOGY LABORATORY Gross Description Specimen A: Received is one formalin filled container labeled with the patient's name and designated left upper lid lateral. The specimen consists of a shave biopsy measuring [id number]. Jar 0. 4:52 PM CDT DERMATOPATHOLOGY LABORATORY Microscopic Description Specimen A. SKIN, left upper lid lateral: There is digitated epidermal hyperplasia, hypergranulosis, vacuolated granular layer cells, and compact hyperorthokeratosis . Additional deeper sections were obtained and reviewed. 4:52 PM CDT DERMATOPATHOLOGY LABORATORY Disclaimer An external and internal positive and negative controls are appropriate for the histochemical, immunohistochemical and immunofluorescence stain(s) in this case (if any), except where stated explicitly. The performance characteristics of the stain(s) cited in this report were developed and its performance characteristic determined by the Dermatopathology Laboratory at [facility]. These tests need not be, and therefore are not, approved by the [place] Food and Drug Administration. The tests are used for clinical purposes. Billing Codes Specimen Charges Stain Charges 14585 1 4:52 PM CDT DERMATOPATHOLOGY LABORATORY Embedded Images 4:52 PM CDT DERMATOPATHOLOGY LABORATORY Pathology/Cytolog y TISSUE SPECIMEN FROM SKIN / Unknown 11/19/2017 11/20/2017 8:38 AM CDT Marcelo Hargrove MD LAB - PATHOLOGY/CYTO LOGY ORDERABLES DERMATOPATHOLOGY LABORATORY [facility] - Department of Dermatology [address] [place] [address], [facility] [phone]
--- OUTSIDE RECORDS SUMMARY | 2024-08-06 10:01 | XMS_ITS | Referral Summary ---
Author Organization [facility] Address [address] [place] [address] Care Team Providers Care Intake Rn Name Role Phone Clifotn Salter MD Primary Care Provider + Encounters Date Type Department Care Team Description 07/07/2024 5:30 PM FIELD OPERATIONS MANAGER Office Visit [facility] [place] [address] [place] [address] Lillie Wang NP Viral URI (Primary Dx) from Last 3 Months Allergies Active Allergy Reactions Criticality Noted Date Comments Codeine Vomiting Low 07/02/2017 Medications montelukast (SINGULAIR) 10 mg tablet Take 1 tablet (10 mg total) by mouth daily Active prenat.vits,geno,min -iron-folic tablet Take 1 tablet by mouth daily. Active ibuprofen (ADVIL,MOTRIN) 200 mg tab/capIndications: Pain Take 2-3 tabs orally every 4-6 hours as needed for pain. 8 Active ondansetron ODT (ZOFRAN-ODT) 4 mg disintegrating tablet Take 1 tablet (4 mg total) by mouth every 8 (eight) hours as needed for nausea or vomiting for up to 20 doses 20 tablet 3 Active Active Problems No known active problems Immunizations Immunization Administration Dates Next Due Tdap 09/11/2017 Social History Tobacco Use Types Packs/Day Years Used Date Smoking Tobacco: Former Cigarettes Q uit: 07/02/2010 Smokeless Tobacco: Never Comments:already quit Alcohol Use Standard Drinks/Week Comments No 0 (1 standard drink = 0.6 oz pur e alcohol) Personal Safety Answer Date Recorded Have you ever been in or are you currently in a harmful physical or emotional relationship or is someone making you feel afraid or unsafe? Denies 03/09/2023 Comments No Sex and Gender Information Value Date Recorded Sex Assigned at Not on file Legal Sex Female 11:31 AM FIELD OPERATIONS MANAGER Gender Identity Not on file Sexual Orientation Not on file Last Filed Vital Signs Vital Sign Reading Time Taken Comments Blood Pressure 112/76 07/07/2024 5:30 PM FIELD OPERATIONS MANAGER Pulse 76 07/07/2024 5:30 PM FIELD OPERATIONS MANAGER Temperature 37.2 C (98.9 F) 07/07/2024 5:30 PM FIELD OPERATIONS MANAGER Respiratory Rate 18 07/07/2024 5:30 PM FIELD OPERATIONS MANAGER Oxygen Saturation 97% 07/07/2024 5:30 PM FIELD OPERATIONS MANAGER Inhaled Oxygen Concentration - - Weight 90.7 kg (200 lb) 07/07/2024 5:30 PM FIELD OPERATIONS MANAGER Height 167.6 cm (5' 6 ) 07/07/2024 5:30 PM FIELD OPERATIONS MANAGER Body Mass Index 32.28 07/07/2024 5:30 PM FIELD OPERATIONS MANAGER Plan of Treatment Not on file Procedures Procedure Name Priority Date/Time Associated Diagnosis Comments POC INFLUENZA A/B, COVID-19 ANTIGEN Routine 07/07/2024 6:01 PM FIELD OPERATIONS MANAGER Viral URI from Last 3 Months Results * POC Influenza A/B, COVID-19 antigen (07/07/2024 6:01 PM FIELD OPERATIONS MANAGER) Influenza A Ag, POC Negative Negative [facility] Influenza B Ag, POC Negative Negative [facility] COVID-19 Ag POC Presumptive Negative Presumptive Negative, Invalid [facility] Nasal 07/07/2024 6:01 PM FIELD OPERATIONS MANAGER us Lillie Wang NP POINT OF CARE TEST ORDERABLES Final Result [facility] [address] [place] [address], [facility] from Last 3 Months Insurance [facility] HMO [facility] HEALTH[facility]ARE HMO [facility] HE[facility] HMO [facility] HMO Advance Directives For more information, please contact: [phone] * Full Code (Latest Code Status on File) Date Activated Date Inactivated Comments 09/11/2017 9:29 AM 09/13/2017 1:35 PM * Full Code Date Activated Date Inactivated Comments 09/11/2017 5:47 AM 09/11/2017 9:29 AM Full CPR in case of cardiopulmonary arrest Care Teams Intake Rn Relationship Specialty [place] [id number] [place] [address] [facility] - General 10/26/21
--- OUTSIDE RECORDS SUMMARY | 2024-08-06 10:01 | XMS_ITS | Clinical Summary ---
Author Organization [facility] Address [address] [place] [address] Care Team Providers Care Manager Marketing Name Role Phone Clifton Salter MD Primary Care Provider + Allergies Active Allergy Reactions Criticality Noted Date [...] Active Active Problems No known active problems Encounters Date Type Department Care Team Description 07/07/2024 5:30 PM EXERCISE INSTRUCTOR Office Visit [facility] [place] [address] [place] [id number] Lillie Wang, IGNACIA Viral URI (Primary Dx) from Last 3 Months Immunizations Immunization Administration Dates Next Due Tdap 09/11/2017 Surgical History Surgery Date Site/Laterality Comments SECTION December 28, 2009 KNEE SURGERY Medical History Medical History Date Comments CTS (carpal tunnel syndrome) sin ce 2011ish but has not had surgery Varicella had chicken pox when she was 6 years old Social History Tobacco Use Types Packs/Day Years [...] on file Legal Sex Female 11:31 AM EXERCISE INSTRUCTOR Gender Identity Not on file Sexual Orientation Not on file Obstetrics History Para Term AB IAB SAB Ectopic Multiple Livin g Live Births 2 2 2 0 2 2 Date Outcome GA Total Labor Labor/2nd/3rd Weight Sex Type Anes PTL Yandy A1 A5 Name Clin Term 018 Term 39w 0d 0h 02m 0h 02m 3.668 kg (8 lb 1.4 oz) F CS-LT ranv Spinal N Livin g 8 9 LIANA ,GIRL Mathieu Nolasco MD Complications:None Delivery Location:This [facility] ([facility]) Last Filed Vital Signs Vital Sign Reading Time Taken Comments Blood Pressure 112/76 07/07/2024 5:30 PM EXERCISE INSTRUCTOR Pulse 76 07/07/2024 5:30 PM EXERCISE INSTRUCTOR Temperature 37.2 C (98.9 F) 07/07/2024 5:30 PM EXERCISE INSTRUCTOR Respiratory Rate 18 07/07/2024 5:30 PM EXERCISE INSTRUCTOR Oxygen Saturation 97% 07/07/2024 5:30 PM EXERCISE INSTRUCTOR Inhaled Oxygen Concentration - - Weight 90.7 kg (200 lb) 07/07/2024 5:30 PM EXERCISE INSTRUCTOR Height 167.6 cm (5' 6 ) 07/07/2024 5:30 PM EXERCISE INSTRUCTOR Body Mass Index 32.28 07/07/2024 5:30 PM EXERCISE INSTRUCTOR Plan of Treatment Health Maintenance Due Date Last Done Comments Breast Cancer Screening-Mammogram 1981 Cervical Cancer Screening 1981 Depression Screening 1981 Hepatitis C Screening 1981 Hepatitis B Screening 1999 Regular Well Visit/Exam 18-64 1999 Covid-19 Vaccine (2 - 4-2 5 season) 2024 06/19/2021 Influenza Vaccine (#1) 2024 04/10/2017 DTaP/Tdap/Td Vaccine (2 - Td or Tdap) 09/12/2027 09/11/2017 HPV Vaccines Aged Out No longer eligi ble based on patient's age to complete this topic Pneumococcal vaccine <65 Aged Out No longer eligible based on patient's age to complete this topic Procedures Procedure Name Priority Date/Time Associated Diagnosis Comments POC INFLUENZA A/B, COVID-19 ANTIGEN Routine 07/07/2024 6:01 PM EXERCISE INSTRUCTOR Viral URI from Last 3 Months Results * POC Influenza A/B, COVID-19 antigen (07/07/2024 6:01 PM EXERCISE INSTRUCTOR) Influenza A Ag, POC Negative Negative [facility] Influenza B Ag, POC Negative Negative [facility] COVID-19 Ag POC Presumptive Negative Presumptive Negative, Invalid [facility] Nasal 07/07/2024 6:01 PM EXERCISE INSTRUCTOR us Lillie Wang NP POINT OF CARE TEST ORDERABLES Final Result [facility] [address] [place] [address], [facility] from Last 3 Months Insurance [facility] HMO [facility] [employer]ETNA [facility] HMO Advance Directives For more information, please contact: [phone] * Full Code (Latest Code Status on File) Date Activated Date Inactivated Comments 09/11/2017 9:29 AM 09/13/2017 1:35 PM * Full Code Date Activated Date Inactivated Comments 09/11/2017 5:47 AM 09/11/2017 9:29 AM Full CPR in case of cardiopulmonary arrest Care Teams Manager Marketing Relationship Specialty [place] [id number] [facility] [address] [place] [address] PCP - General 10/26/21
--- OUTSIDE RECORDS SUMMARY | 2024-08-06 10:01 | XMS_ITS | Clinical Summary ---
Author Organization [facility] Address [address] [place] [address] Phone Care Team Providers Care Pulp Roller Name Role Phone MARIAELENA PHAM Primary Care Provider Azul SPANGLER MD, GARCÍA Morlaes Unavailable [phone] Reason for Visit and Chief Complaint * PHONE CALL Problems Includes: Problems addressed during this encounter and other active Problems Current Visit Onset Date Resolved Date Provider Conditio n Status History of Depression 03/13/2017 Unknown GARCÍA SPANGLER MD Resolved Last Documented On 03/19/2018 11:01AM ; [facility] Note: was Closed. Past Visits Onset Date Resolved Date Provider Condition Status Elderly Multigravida (35 Or Older At Delivery) 02/13/2017 DAI VERGARA Active Last Documented On 7 9:43AM ; [facility] Peripartum History Delivery By Section 02/13/2017 DAI VERGARA Active Last Documented On 7 9:44AM ; [facility] Note: failure to descend Plan of Treatment No Plan of Treatment Recorded Assessments Includes: Assessments from this encounter No Assessments Recorded Medical Equipment - Implanted Devices Includes: Current Devices No Medical Equipment Recorded Medications Includes: Medications discussed during this encounter and other current Medications Current Medications (continue as prescribed) Sertraline HCl 50MG Oral Tablet 07/17/2017 Provider: GARCÍA SPANGLER MD Diagnosis: Encounter for christensen prvsn of normal , third trimester One tablet daily Last Documented On 07/17/2017 10:06AM By GARCÍA SPANGLER MD ; [facility] Past Medications on file Terazol 7 0.4% Vaginal Cream 02/13/2017 - 03/15/2017 P rovider: DAI GONZALES IGNACIA-BC Diagnosis: as directedsert one applicator full pv q hs x 7 nocs Last Documented On 7 10:13AM By DAI GONZALES IGNACIA-BC ; [facility] NuvaRing 0.12-0.015 MG/24HR VA RING 02/19/2014 - 03/19/2014 Provider: GARCÍA Petit Diagnosis: Sig: use vaginally x 3 weeks, out x 1 week Last Documented On 02/19/2014 2:15PM By GARCÍA SPANGLER MD ; [facility] Medications Administered Includes: Administered Medications from this encounter No Administered Medications Recorded Results Includes: Results discussed during this encounter No Results Recorded For Specified Dates History of Present Illness Includes: History of Present Illness from this encounter HPI Pharmacy name:~location: [facility]. Social History No Social History Recorded - Smoking Status Unknown Procedures and Surgical History Surgical History Last Updated History of tubal ligation 09/11/2017 with repeat c/s TK 12/23/2020 Last Documented On 2 9:35AM ; [facility] Recent change to surgical history 2018 Last Documented On 2 9:35AM ; [facility] Surgical / procedural histor y LEFT KNEE SURGERY ~tubes removed from both ears 12/2014 (placed about a year before) ~C/S with tubal 09/11/17 TCK ~Breast reduction 03/201812/16/2018 Last Documented On 2 9:35AM ; [facility] History of surgery c/s TCK 08/30/2017 Last Documented On 2 9:35AM ; [facility] Medical History Includes: Medical History addressed during this encounter Description Last Updated LMP: 12/16/2020 08/23/2023 Last Documented On 2 9:35AM ; [facility] Last pap smear date 12/21/2019 08/23/2023 Last Documented On 2 9:35AM ; [facility] Contraception: tubal with rpt section TK 12/23/2020 Last Documented On 2 9:35AM ; [facility] History of cervical Pap smear 12/21/2019 12/23/2020 Last Documented On 2 9:35AM ; [facility] Recent change in medical history 019 Last Documented On 2 9:35AM ; [facility] A colonoscopy was performed years ago Last Documented On 2 9:35AM ; [facility] Baby thriving C/S 09/11/17 AMH 39- 0/7 we eks 8# 1oz Dorothea Camilo 10/25/2017 Last Documented On 2 9:35AM ; [facility] is bottle-feeding 10/25/2017 Last Documented On 2 9:35AM ; [facility] History of Pap smear done 04/09/201604/2018 Last Documented On 2 9:35AM ; [facility] Result: normal 09/25/2017 Last Documented On 2 9:35AM ; [facility] section x 2 09/17/2017 Last Documented On 2 9:35AM ; [facility] Status post tubal ligation 09/11/2017 TCK 09/17/2017 Last Documented On 2 9:35AM ; [facility] Sexually active with 1 partners in the l ast year 09/17/2017 Last Documented On 2 9:35AM ; [facility] Para 2 09/17/2017 Last Documented On 2 9:35AM ; [facility] 2 08/30/2017 Last Documented On 2 9:35AM ; [facility] History of depression MOB po st : meds for 3-4 months: zoloft: helped: no problems since then; MOB mom and sister and everyone on her maternal side 08/30/2017 Last Documented On 2 9:35AM ; [facility] Family History Includes: Family History addressed during this encounter Description Last Updated dad- throat cancer 2009 feroz ssion and dx with different throat cancer 2018 12/16/2018 Last Documented On 2 9:35AM ; [facility] Maternal grandfather's history of diabet es mellitus maternal grandfather 12/16/2018 Last Documented On 2 9:35AM ; [facility] Spouse name: Antelmo 04/05/2015 Last Documented On 2 9:35AM ; [facility] Family history of diabetes mellitus mate rnal grandfather 04/05/2015 Last Documented On 2 9:35AM ; [facility] Family history of malignant neoplasm of the large intestine pgf in his 60's 06/29/2012 Last Documented On 2 9:35AM ; [facility] Review of Systems Includes: Review of Systems [...] Resolved Last Documented On 4 1:00PM ; [facility] Encounters Encounter Provider Location Date Check-In Time Check-Out Time Diagnosis * PHONE CALL EUSEBIO PECK 01/02/2022 9:35AM 11:59PM Insurance Includes: Active Insurance Policies Plan Name Member ID Group # Subscriber Relationship Effect leandra Dates 1 - AETNA [facility] [id number] ANTELMO FLORES Clinical Notes Includes: Clinical Notes from this encounter No Clinical Notes Recorded
--- OUTSIDE RECORDS SUMMARY | 2024-08-06 10:01 | XMS_ITS | Clinical Summary ---
Author Organization [facility] Address [address] [place] [address] Care Team Providers Care Spray Rig Operator Name Role Phone Unavailable Primary Care Provider Unavailabl e Source Comments [facility],non-owned Affiliates and Associated Physician Practices is amultiple site organization consisting of ambulatory clinics and hospital sitesin [place], [place], [place] and [place]. This disclosure is being madepursuant to the Care Everywhere program and may not contain all information available regarding this patient. Last updated 18.[facility] Social History Tobacco Use Types Packs/Day Years Used Date Smoking Tobacco: Never Assessed Sex and Gender Information Value Date Recorded Sex Assigned at Not on file Gender Identity Not on file Sexual Orientation Not on file Plan of Treatment Health Maintenance Due Date Last Done Comments LIPID TESTING 1981 MAMMOGRAM 1981 PAP SMEAR 1981 HIV SCREENING 01/16/1996 HEPATITIS C SCREENING 01/11/1999 DTAP/TDAP/TD VACCINES (1 - Tdap) 01/16/2000 HEPATITIS B VACCINE (1 of 3 - 19+ 3-dose series) 01/16/2000 COVID-19 VACCINE ( - 2023-2 5 season) 2024 INFLUENZA VACCINE (#1) 2024 DEPRESSION SCREENING 06/17/2024 ZOSTER VACCINE (1 of 2) 2031 HIB VACCINE Aged Out No longer eligi ble based on patient's age to complete this topic HPV VACCINE Aged Out No longer eligi ble based on patient's age to complete this topic MENINGOCOCCAL (Group B) VACCINE Aged Out No longer eligible based on patient's age to complete this topic MENINGOCOCCAL VACCINE Aged Out No r[place] yocasta eligible based on patient's age to complete this topic PNEUMOCOCCAL VACCINE Aged Out No long er eligible based on patient's age to complete this topic
--- OUTSIDE RECORDS SUMMARY | 2024-08-06 10:01 | XMS_ITS | Clinical Summary ---
Author Organization [facility] Address [address] [place] [address] Phone Care Team Providers Care Construction Recruiter Name Role Phone MARIAELENA PHAM Primary Care Provider Azul SPANGLER MD, GARCÍA Morales Unavailable [phone] Reason for Visit and Chief Complaint The Chief Complaint is: WWE and no c/o Problems Includes: Problems addressed during this encounter and other active Problems Current Visit Onset Date Resolved Date Provider Conditio n Status Alcohol Use 03/13/2017 Unknown GARCÍA SPANGLER MD Resol ed Last Documented On 03/19/2018 11:01AM ; [facility] Note: was Closed. History of Depression 03/13/2017 Unknown GARCÍA SPANGLER MD Resolved Last Documented On 03/19/2018 11:01AM ; [facility] Note: was Closed. Tobacco Use 03/13/2017 Unknown GARCÍA SPANGLER MD Resolv ed Last Documented On 03/19/2018 11:01AM ; [facility] Note: was Closed. Past Visits Onset Date Resolved Date Provider Condition Status Elderly Multigravida (35 Or Older At Delivery) 02/13/2017 DAI PECK-BC Active Last Documented On 7 9:43AM ; [facility] Peripartum History Delivery By Section 02/13/2017 DAI WARRENNP-BC Active Last Documented On 7 9:44AM ; [facility] Note: failure to descend Plan of Treatment - Follow-up visit 1 year or as needed - Last Documented On 08/23/2023 1:36PM ; [facility] She will let us know if she has other problems in the meantime. - Last Documented On 08/23/2023 1:36PM ; [facility] Pending Tests Order Diagnosis Results Due Ordering P [facility] @ other - *MAMMOGRAPHY SCREENING MAMMOGRAM Encntr screen mammogram for malignant neoplasm of breast 10/06/23 GARCÍA SPANGLER MD Last Documented On 4 1:36PM ; [facility] Instructions to patient Instructions for patient : B reast Self Exam discussed Last Documented On 4 1:20PM ; [facility] Intervention and counseling on cessation of tobacco use Last Documented On 4 1:04PM ; [facility] Education and Decision Aids were provided during visit for: STD screening offered and de clined Last Documented On 4 1:20PM ; [facility] Bone Mineral Density Screeni ng guidelines reviewed Last Documented On 4 1:20PM ; [facility] Patient Education: Daily geno cium and vitamin D Last Documented On 4 1:20PM ; [facility] Patient Education: weight be aring exercise Last Documented On 4 1:20PM ; [facility] Colonoscopy screening guidel poonam discussed Last Documented On 4 1:20PM ; [facility] Assessments Includes: Assessments from this encounter Findings - Fibrocystic disease of breast - Last Documented On 08/23/2023 1:36PM ; [facility] - NORMAL FEMALE EXAM - Last Documented On 08/23/2023 1:36PM ; [facility] - Screening Malig. Neoplasm Rectum - Last Documented On 08/23/2023 1:36PM ; [facility] Instructions Includes: Instructions from this encounter Instructions to patient Instructions for patient : B reast Self Exam discussed Last Documented On 4 1:20PM ; [facility] Intervention and counseling on cessation of tobacco use Last Documented On 4 1:04PM ; [facility] Education and Decision Aids were provided during visit for: STD screening offered and de clined Last Documented On 4 1:20PM ; [facility] Bone Mineral Density Screeni ng guidelines reviewed Last Documented On 4 1:20PM ; [facility] Patient Education: Daily geno cium and vitamin D Last Documented On 4 1:20PM ; [facility] Patient Education: weight be aring exercise Last Documented On 4 1:20PM ; [facility] Colonoscopy screening guidel poonam discussed Last Documented On 4 1:20PM ; [facility] Medical Equipment - Implanted Devices Includes: Current Devices No Medical Equipment Recorded Medications Includes: Medications discussed during this encounter and other current Medications Current Medications (continue as prescribed) Sertraline HCl 50MG Oral Tablet 07/17/2017 Provider: GARCÍA SPANGLER MD Diagnosis: Encounter for christensen prvsn of normal , third trimester One tablet daily Last Documented On 07/17/2017 10:06AM By GARCÍA SPANGLER MD ; [facility] Past Medications on file Terazol 7 0.4% Vaginal Cream 02/13/2017 - 03/15/2017 P rovider: DAI VERGARA Diagnosis: as directedsert one applicator full pv q hs x 7 nocs Last Documented On 7 10:13AM By DAI VERGARA ; [facility] NuvaRing 0.12-0.015 MG/24HR VA RING 02/19/2014 - 03/19/2014 Provider: GARCÍA Petit Diagnosis: Sig: use vaginally x 3 weeks, out x 1 week Last Documented On 02/19/2014 2:15PM By GARCÍA SPANGLER MD ; [facility] Medications Administered Includes: Administered Medications from this encounter No Administered Medications Recorded Vital Signs Includes: Vital Signs from this encounter Vital Name 08/23/2023 12:51P Blood Pressure Sitting (mmHg) 112/78 Temp-Oral (F) 98 Height (in) 66 Weight (lb) 201.6 Body Mass Index 32.5 Body Surface Area 2 Last Documented: On 08/23/2023 1:01PM ; [facility] Results Includes: Results discussed during this encounter No Results Recorded For Specified Dates History of Present Illness Includes: History of Present Illness from this encounter BREE FLORES is a 43 year old female. - Allergy list reviewed - Medication list reviewed - Primary Care Provider: Dr Flowers Social History Description Last Updated Current smoker : about a pac k per week smoked since in her 20's 'One social weekend per month' NTQS 08/23/2023 Last Documented On 4 1:36PM ; [facility] Tobacco use 12/21/2019 Last Documented On 4 12:50PM ; [facility] Social history unchanged 12/16/2018 Last Documented On 4 12:50PM ; [facility] Alcohol use 12/16/2018 Last Documented On 4 12:50PM ; [facility] Exercising regularly 12/16/2018 Last Documented On 4 12:50PM ; [facility] Marital history 12/16/2018 Last Documented On 4 12:50PM ; [facility] Not using drugs 12/16/2018 Last Documented On 4 12:50PM ; [facility] Sexually active 12/16/2018 Last Documented On 4 12:50PM ; [facility] Sexually active 5 weeks 10/25 Last Documented On 4 12:50PM ; [facility] Smoking Status Unknown Procedures and Surgical History Includes: Procedures from this encounter Procedures Code Diagnosis Performing Provider Service Location Service Date FIT TEST-SCREENING FOR FECAL OCCULT BLOOD (CLIA WAIVED) 52067 Encounter for screening for malignant neoplasm of colon GARCÍA SPANGLER MD [facility] 08/23/2023 Last Documented On 4 1:15PM ; [facility] intervention and counseling 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 4000F Last Documented On 4 1:04PM ; [facility] use of tobacco assessment performed 1000F Last Documented On 4 1:04PM ; [facility] Clinical summary provided to patient Last Documented On 4 1:20PM ; [facility] cervical Pap smear 04449 Last Documented On 4 1:20PM ; [facility] history of cervical Pap smear 01/19/2022 51919 Last Documented On 4 12:51PM ; [facility] FIT Test-Fecal Occult negative 59488 Last Documented On 4 1:20PM ; [facility] Surgical History Last Updated History of tubal ligation 09/11/2017 with repeat c/s TK 12/23/2020 Last Documented On 4 12:50PM ; [facility] Surgical / procedural histor y LEFT KNEE SURGERY ~tubes removed from both ears 12/2014 (placed about a year before) ~C/S with tubal 09/11/17 TCK ~Breast reduction 03/201812/16/2018 Last Documented On 4 12:50PM ; [facility] History of surgery c/s TCK 08/30/2017 Last Documented On 4 12:50PM ; [facility] Medical History Includes: Medical History addressed during this encounter Description Last Updated Last mammogram date: October or November 2022 WNL per pt at [facility] in [place] 08/23/2023 Last Documented On 4 1:36PM ; [facility] History of screening mammogr am was performed Baseline; October or November 2022 at [place] WNL per pt 08/23/2023 Last Documented On 4 1:36PM ; [facility] LMP: 07/31/2023 08/23/2023 Last Documented On 4 1:36PM ; [facility] Last pap smear date 01/19/2022 08/23/2023 Last Documented On 4 1:36PM ; [facility] Anxiety 01/19/2022 Last Documented On 4 12:50PM ; [facility] Depression 01/19/2022 Last Documented On 4 12:50PM ; [facility] Contraception: tubal with rpt section TK 12/23/2020 Last Documented On 4 12:50PM ; [facility] History of cervical Pap smear 12/21/2019 12/23/2020 Last Documented On 4 12:50PM ; [facility] Baby thriving C/S 09/11/17 AMH 39- 0/7 we eks 8# 1oz Dorothea Camilo 10/25/2017 Last Documented On 4 12:50PM ; [facility] Result: normal 09/25/2017 Last Documented On 4 12:50PM ; [facility] section x 2 09/17/2017 Last Documented On 4 12:50PM ; [facility] Sexually active with 1 partners in the l ast year 09/17/2017 Last Documented On 4 12:50PM ; [facility] Para 2 09/17/2017 Last Documented On 4 12:50PM ; [facility] 2 08/30/2017 Last Documented On 4 12:50PM ; [facility] History of depression MOB po st : meds for 3-4 months: zoloft: helped: no problems since then; MOB mom and sister and everyone on her maternal side 08/30/2017 Last Documented On 4 12:50PM ; [facility] Family History Includes: Family History addressed during this encounter Description Last Updated Paternal grandfather's histo ry of malignant neoplasm of large intestine pgf in his 60's 08/23/2023 Last Documented On 4 1:36PM ; [facility] dad- throat cancer 2010 remission and dx with different throat cancer 2018 12/16/2018 Last Documented On 4 12:50PM ; [facility] Maternal grandfather's history of diabet es mellitus maternal grandfather 12/16/2018 Last Documented On 4 12:50PM ; [facility] Spouse name: Antelmo 04/05/2015 Last Documented On 4 12:50PM ; [facility] Review of Systems Includes: Review of Systems from this encounter Gastrointestinal: No nausea, no vomiting, and no [...] No arthralgias and no localized joint swelling. Mental Status Includes: Mental Status from this encounter Description Anxiety Functional Status Includes: Functional Status from this encounter No Functional Status Recorded Physical Exam Includes: Physical Exam from this encounter Allergies Includes: Active Allergies Substance Type Reaction Onset Date Resolved Date Statu s Codeine Allergy 03/04/2012 Resolved Last Documented On 1:00PM ; [facility] Encounters Encounter Provider Location Date Check-In Time Check-Out Time Diagnosis [facility] GARCÍA SPANGLER MD [facility] 08/23/19 24 12:50PM 1:39PM Breast Fibrocystic Disease,Screen ing Malig. Neoplasm Rectum,Normal Female Exam Insurance Includes: Active Insurance Policies Plan Name Member ID Group # Subscriber Relationship Effect leandra Dates 1 - NA [facility] [id number] ANTELMO FLORES Clinical Notes Includes: Clinical Notes from this encounter * Progress note Date Encounter Last Documented by 08/23/2023 [facility] Last documented on 08/23/2023; 1:36 PM, GARCÍA SPANGLER MD; [facility] Active Problems & Conditions - Elderly Multigravida [...] or November 2022 WNL per pt at [facility] in [place], and Contraception: tubal with rpt section 09/11/2017 TK. Surgical / Procedural: Surgical / procedural history LEFT KNEE SURGERY tubes removed from both ears 12/2014 (placed about a year before) C/S with tubal 09/11/17 TCK Breast reduction 03/2018. : Baby thriving C/S 09/11/17 AMH 39- 0/7 weeks 8# 1derek Camilo , 2, para 2, and history of the : section x 2. Sexual: Sexually active with 1 partners in the last year. Other: Screening mammogram was performed Baseline; October or November 2022 at [place] WNL per pt. Cervical Pap smear 12/21/2019 [...] weeks . Family History Spouse name: Antelmo Garay- throat cancer 2010 remission and dx with [...] breast - NORMAL FEMALE EXAM - Screening [facility]. Neoplasm Rectum Previous Tests Pathology: Cytology: Cervical [...] MAMMOGRAM Instructions: screening mammogram; last 09/21/2022 at [place]; Please send a copy to PCP: kvng Salter. EndCited StartCited - Other Follow-up needs mammogram after 09/22/2023; return in one year for WWE (30 min) EndCited - Follow-up visit 1 year or as needed She will let us know if she has other problems in the meantime. Practice Management Use of tobacco assessment performed.
--- OUTSIDE RECORDS SUMMARY | 2024-08-06 10:01 | XMS_ITS | Referral Summary ---
Author Organization [facility] Address [address] [place] [address] Care Team Providers Care Exhaust Emissions Automotive Technician Name Role Phone Unavailable Primary Care Provider Unavailabl e Source Comments [facility],non-owned Affiliates and Associated Physician Practices is amultiple site organization consisting of ambulatory clinics and hospital sitesin [place], [place], [place] and [place]. This disclosure is being madepursuant to the Care Everywhere program and may not contain all information available regarding this patient. Last updated 18.[facility] Tendr Social History Tobacco Use Types Packs/Day Years Used Date Smoking Tobacco: Never Assessed Sex and Gender Information Value Date Recorded Sex Assigned at Not on file Gender Identity Not on file Sexual Orientation Not on file Plan of Treatment Not on file
--- OUTSIDE RECORDS SUMMARY | 2024-08-06 10:01 | XMS_ITS | Clinical Summary ---
Author Organization [facility] Address [address] [place] [address] Phone Care Team Providers Care Director Apparel Name Role Phone MARIAELENA PHAM Primary Care Provider Azul SPANGLER MD, GARCÍA Morales Unavailable [phone] Reason for Visit and Chief Complaint The Chief Complaint is: WWE.. Pt states she called in last month with what she thought was UTI sx and was given an antibiotic, but she has not gotten better. She states she has a lot of pressure to urinate and some leakage.. No other concerns today Problems Includes: Problems addressed during this encounter and other active Problems Current Visit Onset Date Resolved Date Provider Conditio n Status Alcohol Use 03/13/2017 Unknown GARCÍA SPANGLER MD Resol ed Last Documented On 03/19/2018 11:01AM ; [facility] Note: was Closed. History of Depression 03/13/2017 Unknown GARCÍA SPANGLER MD Resolved Last Documented On 03/19/2018 11:01AM ; [facility] Note: was Closed. Tobacco Use 03/13/2017 Unknown GARCÍA SPANGLER MD Resolv ed Last Documented On 03/19/2018 11:01AM ; [facility] Note: was Closed. Past Visits Onset Date Resolved Date Provider Condition Status Elderly Multigravida (35 Or Older At Delivery) 02/13/2017 DAI PECK- Active Last Documented On 7 9:43AM ; [facility] Peripartum History Delivery By Section 02/13/2017 DAI PECK-BC Active Last Documented On 7 9:44AM ; [facility] Note: failure to descend Plan of Treatment - Follow-up visit 1 year or as needed - Last Documented On 01/19/2022 3:43PM ; [facility] She will let us know if she has other problems in the meantime. - Last Documented On 01/19/2022 3:43PM ; [facility] Pending Tests Order Diagnosis Results Due Ordering P rovider Radiology @ other - *MAMMOGRAPHY SCREENING MAMMOGRAM Encntr screen mammogram for malignant neoplasm of breast 02/02/22 GARCÍA SPANGLER MD Last Documented On 4 2:40PM ; [facility] Radiology @ other - *MAMMOGRAPHY SCREENING MAMMOGRAM Encntr screen mammogram for malignant neoplasm of breast 10/06/23 GARCÍA SPANGLER MD Last Documented On 4 1:36PM ; [facility] Instructions to patient Instructions for patient : B reast Self Exam discussed Last Documented On 2 3:14PM ; [facility] Intervention and counseling on cessation of tobacco use Last Documented On 2 3:18PM ; [facility] Education and Decision Aids were provided during visit for: STD screening offered and de clined Last Documented On 2 3:14PM ; [facility] Bone Mineral Density Screeni ng guidelines reviewed Last Documented On 2 3:14PM ; [facility] Colonoscopy screening guidel poonam discussed Last Documented On 2 3:14PM ; [facility] Assessments Includes: Assessments from this encounter Findings - URINARY FREQUENCY - Last Documented On 01/19/2022 3:43PM ; [facility] - Fibrocystic disease of breast - Last Documented On 01/19/2022 3:43PM ; [facility] - NORMAL FEMALE EXAM - Last Documented On 01/19/2022 3:43PM ; [facility] - Screening Malig. Neoplasm Rectum - Last Documented On 01/19/2022 3:43PM ; [facility] Instructions Includes: Instructions from this encounter Instructions to patient Instructions for patient : B reast Self Exam discussed Last Documented On 2 3:14PM ; [facility] Intervention and counseling on cessation of tobacco use Last Documented On 2 3:18PM ; [facility] Education and Decision Aids were provided during visit for: STD screening offered and de clined Last Documented On 2 3:14PM ; [facility] Bone Mineral Density Screeni ng guidelines reviewed Last Documented On 2 3:14PM ; [facility] Colonoscopy screening guidel poonam discussed Last Documented On 2 3:14PM ; [facility] Medical Equipment - Implanted Devices Includes: Current Devices No Medical Equipment Recorded Medications Includes: Medications discussed during this encounter and other current Medications Discontinued / Stopped on this date on 01/02/2022 Bactrim DS 800-160 MG Oral Tablet Provide r: Diagnosis: Last Documented On 01/19/2022 2:51PM By Delfino DICKERSON ; [facility] Current Medications (continue as prescribed) Sertraline HCl 50MG Oral Tablet 07/17/2017 Provider: GARCÍA SPANGLER MD Diagnosis: Encounter for christensen prvsn of normal , third trimester One tablet daily Last Documented On 07/17/2017 10:06AM By GARCÍA SPANGLER MD ; [facility] Past Medications on file Terazol 7 0.4% Vaginal Cream 02/13/2017 - 03/15/2017 [facility] Diagnosis: as directedsert one applicator full pv q hs x 7 nocs Last Documented On 7 10:13AM By DAI GONZALES IGNACIA- ; [facility] NuvaRing 0.12-0.015 MG/24HR VA RING 02/19/2014 - 03/19/2014 Provider: GARCÍA Petit Diagnosis: Sig: use vaginally x 3 weeks, out x 1 week Last Documented On 02/19/2014 2:15PM By GARCÍA SPANGLER MD ; [facility] Medications Administered Includes: Administered Medications from this encounter No Administered Medications Recorded Vital Signs Includes: Vital Signs from this encounter Vital Name 01/19/2022 02:51P Blood Pressure Sitting L 118/76 BP Cuff Size Regular Temp-Oral (F) 98.3 Height (in) 66 Weight (lb) 190.2 Body Mass Index (kg/m2) 30.7 Body Surface Area (m2) 2.0 Last Documented: On 01/19/2022 2:53PM ; [facility] Results Includes: Results discussed during this encounter No Results Recorded For Specified Dates History of Present Illness Includes: History of Present Illness from this encounter HPI RAMIRO FLORES is a 42 year old female. - Allergy list reviewed - Medication list reviewed - Primary Care Provider: Dr. Garcia - Urinary frequency Pt with persistent frequency and 'constant pressure' 'like i have a full bladder all the time'. Took Rx for Bactrim and did not see a difference Social History Description Last Updated Current smoker : about a pack per week s moked since in her 20's NTQS 01/19/2022 Last Documented On 2 3:43PM ; [facility] Tobacco use 12/21/2019 Last Documented On 2 2:46PM ; [facility] Social history unchanged 12/16/2018 Last Documented On 2 2:46PM ; [facility] Alcohol use 12/16/2018 Last Documented On 2 2:46PM ; [facility] Exercising regularly 12/16/2018 Last Documented On 2 2:46PM ; [facility] Marital history 12/16/2018 Last Documented On 2 2:46PM ; [facility] Not using drugs 12/16/2018 Last Documented On 2 2:46PM ; [facility] Sexually active 12/16/2018 Last Documented On 2 2:46PM ; [facility] Sexually active 5 weeks 10/25 Last Documented On 2 2:46PM ; [facility] Smoking Status Unknown Procedures and Surgical History Includes: Procedures from this encounter Procedures Code Diagnosis Performing Provider Service L ocation Service Date intervention and counseling on cessation of tobacco use 4000F Last Documented On 2 3:18PM ; [facility] use of tobacco assessment performed 1000F Last Documented On 2 2:47PM ; [facility] Clinical summary provided to patient Last Documented On 2 3:14PM ; [facility] cervical Pap smear 51302 Last Documented On 2 3:14PM ; [facility] FIT Test-Fecal Occult negative 06036 Last Documented On 2 3:14PM ; [facility] Surgical History Last Updated History of tubal ligation 09/11/2017 with repeat c/s TK 12/23/2020 Last Documented On 2 2:46PM ; [facility] Recent change to surgical history 2018 Last Documented On 2 2:46PM ; [facility] Surgical / procedural histor y LEFT KNEE SURGERY ~tubes removed from both ears 12/2014 (placed about a year before) ~C/S with tubal 09/11/17 TCK ~Breast reduction 03/201812/16/2018 Last Documented On 2 2:46PM ; [facility] History of surgery c/s TCK 08/30/2017 Last Documented On 2 2:46PM ; [facility] Medical History Includes: Medical History addressed during this encounter Description Last Updated Anxiety 01/19/2022 Last Documented On 2 3:43PM ; [facility] Depression 01/19/2022 Last Documented On 2 3:43PM ; [facility] LMP: 12/24/2021 01/19/2022 Last Documented On 2 3:43PM ; [facility] Last pap smear date 12/23/2020 01/19/2022 Last Documented On 2 3:43PM ; [facility] Contraception: tubal with rpt section TK 12/23/2020 Last Documented On 2 2:46PM ; [facility] Recent change in medical history 019 Last Documented On 2 2:46PM ; [facility] Baby thriving C/S 09/11/17 AMH 39- 0/7 we eks 8# 1oz Dorothea Ton 10/25/2017 Last Documented On 2 2:46PM ; [facility] Result: normal 09/25/2017 Last Documented On 2 2:46PM ; [facility] section x 2 09/17/2017 Last Documented On 2 2:46PM ; [facility] Sexually active with 1 partners in the l ast year 09/17/2017 Last Documented On 2 2:46PM ; [facility] Para 2 09/17/2017 Last Documented On 2 2:46PM ; [facility] 2 08/30/2017 Last Documented On 2 2:46PM ; [facility] History of depression MOB po st : meds for 3-4 months: zoloft: helped: no problems since then; MOB mom and sister and everyone on her maternal side 08/30/2017 Last Documented On 2 2:46PM ; [facility] Family History Includes: Family History addressed during this encounter Description Last Updated dad- throat cancer 2009 feroz ssion and dx with different throat cancer 2018 12/16/2018 Last Documented On 2 2:46PM ; [facility] Maternal grandfather's history of diabet es mellitus maternal grandfather 12/16/2018 Last Documented On 2 2:46PM ; [facility] Spouse name: Antelmo 04/05/2015 Last Documented On 2 2:46PM ; [facility] Family history of diabetes mellitus mate rnal grandfather 04/05/2015 Last Documented On 2 2:46PM ; [facility] Family history of malignant neoplasm of the large intestine pgf in his 60's 06/29/2012 Last Documented On 2 2:46PM ; [facility] Review of Systems Includes: Review of [...] Resolved Last Documented On 4 1:00PM ; [facility] Encounters Encounter Provider Location Date Check-In Time Check-Out Time Diagnosis WELL WOMAN - ESTABLISHED PT GARCÍA SPANGLER MD [facility] 01/20/20 22 2:44PM 3:37PM Breast Fibrocystic Disease,Screen ing Malig. Neoplasm Rectum,Normal Female Exam,Urinary Frequency Insurance Includes: Active Insurance Policies Plan Name Member ID Group # Subscriber Relationship Effect leandra Dates 1 - AETNA [facility] [id number] ANTELMO FLORES M Clinical Notes Includes: Clinical Notes from this encounter No Clinical Notes Recorded
--- OUTSIDE RECORDS SUMMARY | 2024-08-06 10:02 | XMS_ITS | Clinical Summary ---
Author Organization [facility] Address [address] [place] [address] Phone Care Team Providers Care Plumbing Inspector Name Role Phone MARIAELENA PHAM Primary Care Provider Azul SPANGLER MD, GARCÍA Morales Unavailable [phone] Reason for Visit and Chief Complaint The Chief Complaint is: WWE and no c/o Problems Includes: Problems addressed during this encounter and other active Problems Current Visit Onset Date Resolved Date Provider Conditio n Status Alcohol Use 03/13/2017 Unknown GARCÍA SPANGLER MD Resol ed Last Documented On 03/19/2018 11:01AM ; [facility] Note: was Closed. History of Depression 03/13/2017 Unknown GARCÍA SPANGLER MD Resolved Last Documented On 03/19/2018 11:01AM ; [facility] Note: was Closed. Tobacco Use 03/13/2017 Unknown GARCÍA SPANGLER MD Resol ed Last Documented On 03/19/2018 11:01AM ; [facility] Note: was Closed. Past Visits Onset Date Resolved Date Provider Condition Status Elderly Multigravida (35 Or Older At Delivery) 02/13/2017 DAI PECK-BC Active Last Documented On 7 9:43AM ; [facility] Peripartum History Delivery By Section 02/13/2017 DAI PECK-BC Active Last Documented On 7 9:44AM ; [facility] Note: failure to descend Plan of Treatment Return to the office in 1 year for follow up. Patient to call the office in the meantime if she has other problems or questions. - Last Documented On 12/23/2020 9:16AM ; [facility] Pending Tests Order Diagnosis Results Due Ordering Christiano suero Radiology @ other - *MAMMOGRAPHY SCREENING MAMMOGRAM Encntr screen mammogram for malignant neoplasm of breast 10/06/23 GARCÍA SPANGLER MD Last Documented On 4 1:36PM ; [facility] Instructions to patient Instructions for patient : B reast Self Exam discussed and technique reviewed Last Documented On 1 9:01AM ; [facility] Intervention and counseling on cessation of tobacco use Last Documented On 1 8:53AM ; [facility] Assessments Includes: Assessments from this encounter Findings - Fibrocystic disease of breast - Last Documented On 12/23/2020 9:16AM ; [facility] - NORMAL FEMALE EXAM - Last Documented On 12/23/2020 9:16AM ; [facility] Instructions Includes: Instructions from this encounter Instructions to patient Instructions for patient : B reast Self Exam discussed and technique reviewed Last Documented On 1 9:01AM ; [facility] Intervention and counseling on cessation of tobacco use Last Documented On 1 8:53AM ; [facility] Medical Equipment - Implanted Devices Includes: Current Devices No Medical Equipment Recorded Medications Includes: Medications discussed during this encounter and other current Medications Discontinued / Stopped on this date GARCÍA SPANGLER MD on 11/10/2020 Macrobid 100 MG Oral Capsule Provider: GARCÍA SPANGLER MD Diagnosis: Last Documented On 1 8:51AM By MARIELOS DICKERSON ; [facility] Current Medications (continue as prescribed) Sertraline HCl 50MG Oral Tablet 07/17/2017 Provider: GARCÍA SPANGLER MD Diagnosis: Encounter for christensen prvsn of normal , third trimester One tablet daily Last Documented On 07/17/2017 10:06AM By GARCÍA SPANGLER MD ; [facility] Past Medications on file Terazol 7 0.4% Vaginal Cream 02/13/2017 - 03/15/2017 Christiano suero: DAI GONZALES WHNP-BC Diagnosis: as directedsert one applicator full pv q hs x 7 nocs Last Documented On 7 10:13AM By [facility] ; [facility] NuvaRing 0.12-0.015 MG/24HR VA RING 02/19/2014 - 03/19/2014 Provider: GARCÍA Petit Diagnosis: Sig: use vaginally x 3 weeks, out x 1 week Last Documented On 02/19/2014 2:15PM By GARCÍA SPANGLER MD ; [facility] Medications Administered Includes: Administered Medications from this encounter No Administered Medications Recorded Vital Signs Includes: Vital Signs from this encounter Vital Name 12/23/2020 08:55A Temp-Oral (F) 98.3 Height (in) 66 Weight (lb) 182.375 Body Mass Index (kg/m2) 29.4 Body Surface Area (m2) 1.9 Last Documented: On 12/23/2020 8:55AM ; [facility] Results Includes: Results discussed during this encounter No Results Recorded For Specified Dates History of Present Illness Includes: History of Present Illness from this encounter BREE FLORES is a 40 year old female. - Allergy list reviewed - Medication reconciliation performed - Primary Care Provider: Dr Clifton Grace Social History Description Last Updated Current smoker : about a pack per week s moked since in her 20's 12/23/2020 Last Documented On 1 9:16AM ; [facility] Tobacco use 12/21/2019 Last Documented On 1 8:49AM ; [facility] Social history unchanged 12/16/2018 Last Documented On 1 8:49AM ; [facility] Alcohol use 12/16/2018 Last Documented On 1 8:49AM ; [facility] Exercising regularly 12/16/2018 Last Documented On 1 8:49AM ; [facility] Marital history 12/16/2018 Last Documented On 1 8:49AM ; [facility] Not using drugs 12/16/2018 Last Documented On 1 8:49AM ; [facility] Sexually active 12/16/2018 Last Documented On 1 8:49AM ; [facility] Sexually active 5 weeks 10/25 Last Documented On 1 8:49AM ; [facility] Smoking Status Unknown Procedures and Surgical History Includes: Procedures from this encounter Procedures Code Diagnosis Performing Provider Service L ocation Service Date intervention and counseling on cessation of tobacco use 4000F Last Documented On 1 8:53AM ; [facility] use of tobacco assessment performed 1000F Last Documented On 1 8:53AM ; [facility] Clinical summary provided to patient Last Documented On 1 9:01AM ; [facility] cervical Pap smear 03203 Last Documented On 1 9:01AM ; [facility] a colonoscopy was performed years ago Last Documented On 1 8:53AM ; [facility] Surgical History Last Updated History of tubal ligation 09/11/2017 with repeat c/s TK 12/23/2020 Last Documented On 1 9:16AM ; [facility] Recent change to surgical history 2018 Last Documented On 1 8:49AM ; [facility] Surgical / procedural histor y LEFT KNEE SURGERY ~tubes removed from both ears 12/2014 (placed about a year before) ~C/S with tubal 09/11/17 TCK ~Breast reduction 03/201812/16/2018 Last Documented On 1 8:49AM ; [facility] History of surgery c/s TCK 08/30/2017 Last Documented On 1 8:49AM ; [facility] Medical History Includes: Medical History addressed during this encounter Description Last Updated Contraception: tubal with rpt section TK 12/23/2020 Last Documented On 1 9:16AM ; [facility] Last pap smear date 12/21/2019 12/23/2020 Last Documented On 1 9:16AM ; [facility] LMP: 12/16/2020 12/23/2020 Last Documented On 1 9:16AM ; [facility] History of cervical Pap smear 12/21/2019 12/23/2020 Last Documented On 1 9:16AM ; [facility] A colonoscopy was performed years ago Last Documented On 1 8:49AM ; [facility] Baby thriving C/S 09/11/17 AMH 39- 0/7 we eks 8# 1oz Dorothea Camilo 10/25/2017 Last Documented On 1 8:49AM ; [facility] Result: normal 09/25/2017 Last Documented On 1 8:49AM ; [facility] section x 2 09/17/2017 Last Documented On 1 8:49AM ; [facility] Sexually active with 1 partners in the l ast year 09/17/2017 Last Documented On 1 8:49AM ; [facility] Para 2 09/17/2017 Last Documented On 1 8:49AM ; [facility] 2 08/30/2017 Last Documented On 1 8:49AM ; [facility] History of depression MOB po st : meds for 3-4 months: zoloft: helped: no problems since then; MOB mom and sister and everyone on her maternal side 08/30/2017 Last Documented On 1 8:49AM ; [facility] Family History Includes: Family History addressed during this encounter Description Last Updated dad- throat cancer 2009 feroz ssion and dx with different throat cancer 2018 12/16/2018 Last Documented On 1 8:49AM ; [facility] Maternal grandfather's history of diabet es mellitus maternal grandfather 12/16/2018 Last Documented On 1 8:49AM ; [facility] Spouse name: Antelmo 04/05/2015 Last Documented On 1 8:49AM ; [facility] Family history of malignant neoplasm of the large intestine pgf in his 60's 06/29/2012 Last Documented On 1 8:49AM ; [facility] Review of Systems Includes: Review of Systems from this encounter Systemic: No night sweats. Head: No headache. Breasts: No breast lump, no nipple discharge, and no pain in breast. Cardiovascular: No chest pain or discomfort and no palpitations. Pulmonary: No cough. Gastrointestinal: No nausea, no vomiting, no abdominal pain, and no melena. No diarrhea. Genitourinary: No hematuria and no increase in urinary frequency. No dysuria. No genital lesion and normal menses. Endocrine: Libido has not changed. Musculoskeletal: No muscle aches. Neurological: No dizziness. Skin: No skin lesions. Mental Status Includes: Mental Status from this encounter Description Oriented to time, place, and person Functional Status Includes: Functional Status from this encounter No Functional Status Recorded Physical Exam Includes: Physical Exam from this encounter Allergies Includes: Active Allergies Substance Type Reaction Onset Date Resolved Date Statu s Codeine Allergy 03/04/2012 Resolved Last Documented On 4 1:00PM ; [facility] Encounters Encounter Provider Location Date Check-In Time Check-Out Time Diagnosis WELL WOMAN - ESTABLISHED PT GARCÍA SPANGLER MD [facility] 12/24/19 21 8:45AM 9:16AM Breast Fibrocystic Disease,Normal Female Exam Insurance Includes: Active Insurance Policies Plan Name Member ID Group # Subscriber Relationship Effect leandra Dates 1 - AETNA [facility] [id number] ANTELMO FLORES M Clinical Notes Includes: Clinical Notes from this encounter No Clinical Notes Recorded
--- OUTSIDE RECORDS SUMMARY | 2024-08-06 10:02 | XMS_ITS | Clinical Summary ---
Author Organization [facility] Address [address] [place] [address] Phone Care Team Providers Care Emergency Department Coordinator Name Role Phone [facility], External Provider Primary Care Provider U navailable Allergies Active Allergy Reactions Criticality Noted Date Comments Codeine Nausea and Vomiting Low 01/03/2017 Medications montelukast (SINGULAIR) 4 mg Granules in Packet Take 4 mg by mouth daily at bedtime. Active sertraline (ZOLOFT) 50 mg tablet Take 50 mg by mouth daily. Active benzonatate (TESSALON) 200 mg capsule Take 1 Capsule (200 mg) by mouth 3 times daily as needed for Cough. 20 Capsule 07/23/2018 Active codeine-guaiFEN esin (CHERATUSSIN AC) 10-100 mg/5 mL Liquid Take 10 mL by mouth every 4 hours as needed for Cough. 120 mL 07/23/2018 Active Active Problems Problem Noted Date Diagnosed Date Dizziness 05/13/2017 Tobacco use 01/03/2017 Complicated migraine Social History Tobacco Use Types Packs/Day Years Used Date Smoking Tobacco: Former Cigarettes Smokeless Tobacco: Never Comments:smokes 1 pk per wee k Alcohol Use Standard Drinks/Week Comments No 0 (1 standard drink = 0.6 oz pur e alcohol) social (once a week) Comments No Sex and Gender Information Value Date Recorded Sex Assigned at Not on file Legal Sex Female 2:22 PM CDT Gender Identity Not on file Sexual Orientation Not on file Last Filed Vital Signs Vital Sign Reading Time Taken Comments Blood Pressure 106/69 07/23/2018 4:17 PM ACADEMIC ASSOCIATE Pulse 67 07/23/2018 4:17 PM ACADEMIC ASSOCIATE Temperature 36.8 C (98.2 F) 07/23/2018 4:17 PM ACADEMIC ASSOCIATE Respiratory Rate 16 07/23/2018 4:17 PM ACADEMIC ASSOCIATE Oxygen Saturation 97% 07/23/2018 4:17 PM ACADEMIC ASSOCIATE Inhaled Oxygen Concentration - - Weight 89.4 kg (197 lb) 07/23/2018 4:17 PM ACADEMIC ASSOCIATE Height 167.6 cm (5' 6 ) 05/13/2017 3:39 PM ACADEMIC ASSOCIATE Body Mass Index 31.8 05/13/2017 3:39 PM ACADEMIC ASSOCIATE Plan of Treatment Health Maintenance Due Date Last Done Comments DTAP/TDAP/TD VACCINES (1 - Tdap) 01/16/2000 HEPATITIS B VACCINES (1 of 3 - 19+ 3-dose series) 01/16/2000 CERVICAL CANCER SCREENING 2011 BREAST CANCER SCREENING 2021 INFLUENZA VACCINE (#1) 2024 HPV VACCINES Aged Out No longer eligi ble based on patient's age to complete this topic Insurance [employer] CHOICE POS II Care Teams Emergency Department Coordinator Relationship Specialty Start Date End Date [facility], External Provider [address] [place] [address] PCP - General 01/03/17
== END 2024-08-06 09:46 | disposition home or self-care (01) ==
LOC: ANHIMG 09:47
PROVIDERS: Visit Provider Obstetrics & Gynecology
DX: Z12.31 Encounter for screening mammogram for malignant neoplasm of breast (principal)
CPT/HCPCS: 77063; 77067

== ENCOUNTER 2025-03-16 08:25 | Outpatient (CLI) | payer OTHER, SELFPAY ==
--- OUTSIDE RECORDS SUMMARY | 2025-03-16 08:39 | XMS_ITS | Clinical Summary ---
Author Organization [facility] Address [address] [place] [address] Phone Care Team Providers Care Deburrer Name Role Phone [facility], External Provider Primary Care Provider U navailable [...] Comments Blood Pressure 106/69 07/23/2018 4:17 PM MILL WASHER Pulse 67 07/23/2018 4:17 PM MILL WASHER Temperature 36.8 C (98.2 F) 07/23/2018 4:17 PM MILL WASHER Respiratory Rate 16 07/23/2018 4:17 PM MILL WASHER Oxygen Saturation 97% 07/23/2018 4:17 PM MILL WASHER Inhaled Oxygen Concentration - - Weight 89.4 kg (197 lb) 07/23/2018 4:17 PM MILL WASHER Height 167.6 cm (5' 6) 05/13/2017 3:39 PM MILL WASHER Body Mass Index 31.8 05/13/2017 3:39 PM MILL WASHER Plan of Treatment Health Maintenance Due Date Last Done Comments DTAP/TDAP/TD VACCINES (1 - Tdap) 01/16/2000 HEPATITIS B VACCINES (1 of 3 - 19+ 3-dose series) 06/1999 HPV/Cotest (21-29) 2002 HPV VACCINES (1 - 3-dose SCDM series) 01/16/2008 CERVICAL CANCER SCREENING 2011 HPV/Cotest (30-65) 2011 PAP SMEAR 2011 BREAST CANCER SCREENING 2021 INFLUENZA VACCINE (#1) 2025 Insurance AET[employer] CHOICE POS II Care Teams Deburrer Relationship Specialty Start Date End Date [facility], External Provider [address] [place] [address] PCP - General 01/03/17
--- OUTSIDE RECORDS SUMMARY | 2025-03-16 08:39 | XMS_ITS | Clinical Summary ---
Author Organization [facility] Address [address] [place] [address] Phone Care Team Providers Care Marine Services Technician Name Role Phone David Kenny MD Primary Care Provider [phone] Allergies No known active allergies Medications sertraline [...] 7:34 AM CDT Height 167.6 cm (5' 6) 09/23/2018 7:34 AM CDT Body Mass Index 29.05 09/23/2018 7:34 AM CDT Plan of Treatment Health Maintenance Due Date Last Done Comments Hepatitis C Virus (HCV) Screening 1981 TdaP Immunization 1981 Hepatitis B Immunization (1 of 3 - 19+ 3-dose series) 01/16/2000 Pap Smear 2002 Human Papillomavirus (HPV) Immunization (1 - 3-dose SCDM series) 01/16/2008 Cervical Cancer Screening (CCS) 2011 HPV/Cotest 2011 Influenza Immunization (#1) 2025 SARS-COV-2 Immunization ( - 2024- season) 2025 06/19/2021 Respiratory Syncytial Virus (RSV) Immunization (Adult) (1 - 1-dose 75+ series) 01/16/2056 Meningococcal Immunization (ACWY) Aged Out No longer eligible based on patient's age to complete this topic Pneumococcal Immunization Combined Aged Out No longer eligible based on patient's age to complete this topic Rotavirus Immunization Aged Out No lo nger eligible based on patient's age to complete this topic Care Teams Marine Services Technician Relationship Specialty Start Date End Date David Kenny MD [address] [place] [address] PCP - General Pick Up Driver 04/24/15
--- OUTSIDE RECORDS SUMMARY | 2025-03-16 08:39 | XMS_ITS | Clinical Summary ---
Author Organization [facility] Address [address] [place] [address] Care Team Providers Care Nib Finisher Name Role Phone Clifton Salter MD Primary [...] Comments CTS (carpal tunnel syndrome) sin ce 2010ish but has not had surgery Varicella had [...] on file Legal Sex Female 11:31 AM TELEGRAPH LINEMAN Gender Identity Not on file Sexual Orientation [...] ranv Spinal N Livin g 8 9 SANDRA ,GIRL Mathieu Nolasco MD Complications:None Delivery Location:This [facility] ([facility]) Last Filed Vital Signs Vital Sign Reading Time Taken Comments Blood Pressure 112/76 07/07/2024 5:30 PM TELEGRAPH LINEMAN Pulse 76 07/07/2024 5:30 PM TELEGRAPH LINEMAN Temperature 37.2 C (98.9 F) 07/07/2024 5:30 PM TELEGRAPH LINEMAN Respiratory Rate 18 07/07/2024 5:30 PM TELEGRAPH LINEMAN Oxygen Saturation 97% 07/07/2024 5:30 PM TELEGRAPH LINEMAN Inhaled Oxygen Concentration - - Weight 90.7 kg (200 lb) 07/07/2024 5:30 PM TELEGRAPH LINEMAN Height 167.6 cm (5' 6) 07/07/2024 5:30 PM TELEGRAPH LINEMAN Body Mass Index 32.28 07/07/2024 5:30 PM TELEGRAPH LINEMAN Plan of Treatment Health Maintenance Due Date Last Done Comments Breast Cancer Screening-Mammogram 1981 Cervical Cancer Screening 1981 Depression Screening 1981 Hepatitis C Screening 1981 Hepatitis B Screening 1999 Regular Well Visit/Exam 18-64 1999 HPV Vaccines (1 - 3-dose SCD M series) 01/16/2008 Covid-19 Vaccine ( - 2024-2 6 season) 2025 06/19/2021 Influenza Vaccine (#1) 2025 04/10/2017 DTaP/Tdap/Td Vaccine (2 - Td or Tdap) 09/12/2027 09/11/2017 Pneumococcal vaccine <65 Aged Out No longer eligible based on patient's age to complete this topic Insurance [facility] HMO [facility] O Advance Directives For more information, please contact: [phone] * Full Code (Latest Code Status on File) Date Activated Date Inactivated Comments 09/11/2017 9:29 AM 09/13/2017 1:35 PM * Full Code Date Activated Date Inactivated Comments 09/11/2017 5:47 AM 09/11/2017 9:29 AM Full CPR in case of cardiopulmonary arrest Care Teams Nib Finisher Relationship Specialty [place] [address] [facility] [address] [place] [address] PCP - General 10/26/21
[2025-03-16 09:17] LABS: Hematocrit 42.8 % (37.0-47.0); Hemoglobin 14.3 g/dL (12.0-15.0); Mean Corpuscular HGB Conc 33.4 g/dl (32-36); Mean Corpuscular Hemoglobin 30.6 pg (26-34); Mean Corpuscular Volume 91.6 fl (80-100); Platelet Count Result 315 k/mm3 (150-375); Red Blood Count 4.67 M/mm3 (4.2-5.4); White Blood Count 6.3 K/mm3 (4.5-10.0)
[2025-03-16 10:06] LABS: Free T4 Free Thyroxine 1.17 ng/dL (0.78-2.19)
[2025-03-16 10:12] LABS: Thyroid Stimulating Hormone 1.560 uIU/mL (0.465-4.680)
== END 2025-03-16 08:26 | disposition home or self-care (01) ==
LOC: ANHLAB 08:27
PROVIDERS: PCP Internal Medicine Geriatric Medicine; Visit Provider Nurse Practitioner Family
DX: N92.0 Excessive and frequent menstruation with regular cycle (principal)
CPT/HCPCS: 36415; 84146; 84439; 84443; 85027

== ENCOUNTER 2025-05-19 01:08 | Day surgery (SDC) | payer OTHER, SELFPAY ==
--- OUTSIDE RECORDS SUMMARY | 2024-10-16 14:45 | XMS_ITS | Continuity of Care Document ---
Author Organization [facility] Address [address] [place] [address] Phone Care Team Providers Care Hand Laminator Name Role Phone Mal PT,MPT,ATC, Cristopher Unavailable Unavai lable Procedures Procedure Date PT Evaluation Moderate Complexity Therapeutic Activities Canalith Repositioning Procedure 2024 Advance Directives Directive Yes / No Effective Date File Name No Information Encounters Encounter Description Practice Location Reason(s) For Visit Diagnoses Date Provider Providers Copied on Encounter [facility], [address], [place], [place], [id number], tel:[phone] [place] No Information 5 [facility] [place]. [facility], [address], [place], [place], [id number], tel:[phone] [place] No Information 5 [facility] [place]. Referring Provider: Clifton Gray [address], [place], [address]. tel:[phone] Family History Family Member Type Diagnosis Age At Onset No Information Payers Payer name Insurance type Covered libertarian ID Authoriza tion(s) [employer] CI [id number] Social History Type Description Quantity Date Captured Comments Sex Female Smoking Status No Information Chief Complaint And Reason For Visit No Information Reason For Referral Reason For Referral No Information History Of Present Illness Encounter Date Complaint History Of Prese nt Illness No Information Functional Status Date Functional Assessmen t No Information Instructions Date Instruction Additional Infor mation No Information Assessments Type Assessment Date No Information Patient Care Teams Name Effective Dates (start - stop) Status Members No Information
[2025-05-12 14:21] VITALS: BMI 32.3
--- NOTE | 2025-05-12 14:30 | PC.NURSE ---
[facility] has started construction of its new state of the art ER which will open Spring 2026. With this, we anticipate parking may be a challenge for some our surgical patients and families. Parking spaces are limited but are available for all Surgical, obstetrics, and ER patients sharing this lot. If you arrive and find you are having a hard time finding a parking space, please note that we understand the challenges, please drive around the hospital and park near Hospital Entrance 1. When you enter this entrance, you can ask a volunteer to direct or take you back to the surgical waiting area to check in. We appreciate everyone?s understanding of these expected challenges while we build for your future. Report to the Outpatient Waiting Room, entrance under the green pavilion located off [address], at time __1130am on date __05/19/25 . Planned Procedure Time: _1:30pm .? Time changes happen often and if your time is changed the preop area will call you the afternoon before. - You and your visitor will be asked to self-screen and do not enter if you have any COVID symptoms. Please call surgeon if you need to reschedule. - A mask is optional within the hospital at this time. Patients may have clear liquids (water, carbonated beverages, clear teas, apple juice) until 3 hours prior to surgery with a maximum of 20 ounces. - No food from midnight until time of surgery and no smoking, or chewing tobacco (or any form of nicotine). No chewing gum, candy or mints. (10:30am) Take only the following medications with a SIP of water on the morning of surgery: Sertraline, Tylenol if needed DO NOT STOP ANY OF YOUR OTHER PRESCRIPTION MEDICATIONS PRIOR TO SURGERY EXCEPT THE FOLLOWING Hold all vitamins and supplements for 7 days per anesthesiologist. Medications to discontinue per physician ____NO NSAIDS/Motrin/Aspirin for [address] Pro ( pt stated) Date to take last dose 05/11/25 Please no make-up, nail tajik, hairspray, perfume, deodorant, or body powder the day of surgery.? No jewelry (including any body piercings) or valuables the day of surgery, leave them at home.? Please take a shower or bath the night before, or the morning of, surgery with an antibacterial soap.? Wear comfortable, loose fitting clothing.? - Jewelry must be removed prior to entering the operating room.? Rings and piercings that are not removed may be cut off. - The hospital will not accept responsibility for valuables.? - Please leave all valuables, including medications, at home the day of surgery. If you are going home after surgery, a licensed route driver must drive you home.? - NO public transportation without another adult if you receive anesthesia. - We recommend that an adult stay with you for 24 hours following discharge. - We also recommend that you do not drive, make important decision, drink alcoholic beverages, or take any drugs that were not prescribed by your health care provider for at least 24 hours after your discharge time. Follow any additional instructions given to you from your surgeon. Telephone instructions given to ___Patient and asked if any additional questions and then verbalized understanding. Patient advised to call surgeon office or pre surgery nurse liaison [phone] if any additional questions.
[2025-05-19] VITALS (15 sets, daily range): BP systolic 88–123; BP diastolic 51–82; PULSE 51–93; RESP 14–16; TEMP 36.2; O2SAT 97–100; BMI 32.1
--- OUTSIDE RECORDS SUMMARY | 2025-05-19 01:12 | XMS_ITS | Clinical Summary ---
Author Organization [facility] Address [address] [place] [address] Phone Care Team Providers Care Registration Officer Name Role Phone David Kenny MD Primary Care Provider [phone] Allergies No known active allergies Medications sertraline [...] Virus (HCV) Screening 1981 TdaP Immunization 1981 Varicella Immunization (1 of 2 - 13+ 2-dose series) 1994 Hepatitis B Immunization (1 of 3 - 19+ 3-dose series) 01/16/2000 Pap Smear 2002 Human Papillomavirus (HPV) Immunization (1 - 3-dose SCDM series) 01/16/2008 Cervical Cancer Screening (CCS) 2011 HPV/Cotest 2011 Influenza Immunization (#1) 2025 SARS-COV-2 Immunization (2 - season) 2025 06/19/2021 Respiratory Syncytial Virus (RSV) [...] age to complete this topic Care Teams Registration Officer Relationship Specialty Start Date End Date David Kenny MD [facility] [place] [address] PCP - General Play Leader 04/24/15
--- OUTSIDE RECORDS SUMMARY | 2025-05-19 01:12 | XMS_ITS | Clinical Summary ---
Author Organization [facility] Address [address] [place] [address] Phone Care Team Providers Care Glassie Name Role Phone [facility], External Provider Primary Care Provider U navailable [...] Comments Blood Pressure 106/69 07/23/2018 4:17 PM MANAGER IMPLEMENTATION Pulse 67 07/23/2018 4:17 PM MANAGER IMPLEMENTATION Temperature 36.8 C (98.2 F) 07/23/2018 4:17 PM MANAGER IMPLEMENTATION Respiratory Rate 16 07/23/2018 4:17 PM MANAGER IMPLEMENTATION Oxygen Saturation 97% 07/23/2018 4:17 PM MANAGER IMPLEMENTATION Inhaled Oxygen Concentration - - Weight 89.4 kg (197 lb) 07/23/2018 4:17 PM MANAGER IMPLEMENTATION Height 167.6 cm (5' 6) 05/13/2017 3:39 PM MANAGER IMPLEMENTATION Body Mass Index 31.8 05/13/2017 3:39 PM MANAGER IMPLEMENTATION Plan of Treatment Health Maintenance Due Date Last Done Comments DTAP/TDAP/TD VACCINES (1 - Tdap) 01/16/2000 HEPATITIS B VACCINES (1 of 3 - 19+ 3-dose series) 06/1999 HPV/Cotest (21-29) 2002 HPV VACCINES (1 - 3-dose SCDM series) 01/16/2008 CERVICAL CANCER SCREENING 2011 HPV/Cotest (30-65) 2011 PAP SMEAR 2011 BREAST CANCER SCREENING 2021 INFLUENZA VACCINE (#1) 2025 Insurance A[employer] CHOICE POS II Care Teams Glassie Relationship Specialty Start Date End Date [facility], External Provider [address] [place] [address] PCP - General 01/03/17
--- OUTSIDE RECORDS SUMMARY | 2025-05-19 01:12 | XMS_ITS | Clinical Summary ---
Author Organization [facility] Address [address] [place] [address] Care Team Providers Care Scenery Builder Name Role Phone Clifton Salter MD Primary [...] on file Legal Sex Female 11:31 AM ADVERTISING SALES CONSULTANT Gender Identity Not on file Sexual Orientation [...] ,GIRL Mathieu Nolasco MD Complications:None Delivery Location:This [facility] ([facility]) Last Filed Vital Signs Vital Sign Reading Time Taken Comments Blood Pressure 112/76 07/07/2024 5:30 PM ADVERTISING SALES CONSULTANT Pulse 76 07/07/2024 5:30 PM ADVERTISING SALES CONSULTANT Temperature 37.2 C (98.9 F) 07/07/2024 5:30 PM ADVERTISING SALES CONSULTANT Respiratory Rate 18 07/07/2024 5:30 PM ADVERTISING SALES CONSULTANT Oxygen Saturation 97% 07/07/2024 5:30 PM ADVERTISING SALES CONSULTANT Inhaled Oxygen Concentration - - Weight 90.7 kg (200 lb) 07/07/2024 5:30 PM ADVERTISING SALES CONSULTANT Height 167.6 cm (5' 6) 07/07/2024 5:30 PM ADVERTISING SALES CONSULTANT Body Mass Index 32.28 07/07/2024 5:30 PM ADVERTISING SALES CONSULTANT Plan of Treatment Health Maintenance Due Date [...] patient's age to complete this topic Insurance [facility] HMO [facility] O Advance Directives For more information, please contact: [phone] * Full Code (Latest Code Status on File) Date Activated Date Inactivated Comments 09/11/2017 9:29 AM 09/13/2017 1:35 PM * Full Code Date Activated Date Inactivated Comments 09/11/2017 5:47 AM 09/11/2017 9:29 AM Full CPR in case of cardiopulmonary arrest Care Teams Scenery Builder Relationship Specialty [place] [address] [facility] [address] [place] [address] PCP - General 10/26/21
--- NOTE | 2025-05-19 11:40 | WPDHPUPDATE1 ---
History and Physical Update Update Date/Time: 05/19/25 11:40 History and Physical has been reviewed, including an updated exam of the patient. There are NO changes in the patient's condition. Risks, benefits, and alternatives have been discussed and questions answered. Patient agrees to proceed with procedure.
--- NOTE | 2025-05-19 11:41 | WPDANESEPPF ---
Anes - Initial Pre Proc Eval Procedure: Operation Date: 05/19/25 13:30 Proposed Procedures p Hysteroscopy Dilation and Curettage with Ju Endometrial Ablation - Osvaldo Pro MD Date/Time: 05/19/25 11:41 Surgeon: Osvaldo Pro MD Pre Op Diagnosis: endometrial polyp Patient Data Age: 45 Gender: F Height: 1.65 m Weight: 88 kg Allergies Allergy/AdvReac Type Severity Reaction Status Date / Time No Known Allergies Allergy Verified 05/12/25 14:18 Home Medications ?Medication ?Instructions ?Recorded ?Confirmed ?Type ibuprofen 800 mg tablet 800 mg PO Q6H PRN pain #30 tabs 12/30/19 05/12/25 Rx sertraline 50 mg tablet 50 mg PO DAILY 12/30/19 05/12/25 History multivitamin with minerals-folic 1 tablet PO DAILY 05/12/25 05/12/25 History acid 12 mcg chewable tablet (Centrum Adults) Patient hx anesthesia problems: none Family hx anesthesia problems: none Results Review: All pre-operative results and documents have been reviewed as part of the pre-operative evaluation. [facility] Past Medical History Medical History (Updated 05/19/25 @ 11:42 by Janes Marks MD) Anxiety Obesity Endometrial polyp Menorrhagia Social History Social History Smoking status: Light tobacco smoker Tobacco type: cigarettes Additional smoking assessment comments: smokes on occasional weekends only Alcohol intake: current Alcohol use details: few per month Substance use: never Living arrangements: with family Additional living arrangements comments: Family Spiritual care concerns: No Anes - Eval Final PreProcedure Day of Procedure 05/19/25 11:41 Patient weight: obese Heart: regular rate and rhythm Lungs: clear to auscultation Airway: Mallampati scale class II Neurological: alert and oriented Last oral intake: >/= 8 hours ASA classification: II Emergent: no Anesthetic plan: proceed Anesthesia type and monitoring: general GIVS and standard monitoring Results Review: All pre-operative results and documents have been reviewed as part of the pre-operative evaluation. Informed Consent: The patient's anesthetic plan and its attendant risks and benefits were discussed with the patient/family/POA. Questions were solicited and answers provided to the satisfaction of the patient/family/POA.
[2025-05-19] MEDS: LACTATED RINGERS 1,000 ML 30 ML IV CONT ×2 (12:00→13:00)
[2025-05-19] MEDS: ACETAMINOPHEN 500 MG TABLET 1000 MG PO (12:08)
[2025-05-19] MEDS: ceFAZolin 2 GM in SODIUM CHLORIDE 0.9% IV 50 ML 100 ML IVPB (12:18)
[2025-05-19 12:23] LABS: BEDSIDEPREGUCG Negative (Negative)
[2025-05-19] MEDS: LIDOCAINE 1% LOCAL INJ 10 ML VIAL INFILTRATE (12:34)
[2025-05-19] MEDS: KETOROLAC 30 MG/ML VIAL (*BKC) IV PUSH (12:41)
--- NOTE | 2025-05-19 12:54 | W.PM.PROC2 ---
Procedure Note - Detailed Date of Procedure 05/19/25 Pre-op Diagnosis endometrial polyp h/o menorrhagia Post-op Diagnosis Same Procedure Performed Diagnostic hysteroscopy Ju endometrial ablation. Surgeon Osvaldo Pro MD Anesthesia MAC and Local Indications H/o menorrhagia, endometrial polyp Findings Uterus sound to 9cm, cervical length 4cm, uterine cavity 5cm, normal uterine cavity. Good eschar noted after ablation. Description of Procedure After informed consent was obtained patient was taken to the operating room and adequate IV sedation was administered. Attention was turned to the vagina. Speculum was inserted. Single-tooth tenaculum placed on the anterior lip of the cervix. 10cc of 1% lidocaine was injected at cervicovaginal interface. The uterus was sounded to 9 cm. The cervix was dilated to an 8 Wallis dilator. The cervical length was 4cm . The hysteroscope was inserted into the cavity. The findings were a normal uterine cavity. The hysteroscope was removed. The Ju ablation instrument was inserted into the cavity. Cavity assessment was performed and confirmed intact. The ablation was enabled. After 120 seconds the Ju stopped. The ablation instrument was removed. The hysteroscope was inserted and there was noted to be good eschar with the cavity. The hysteroscope was removed the single-tooth tenaculum was removed hemostasis was noted at the tenaculum site. Sponge count correct. The patient taken to recovery in stable condition. Estimated Blood Loss 10 Drains No Packing No Pathology None sent Complications No immediate complications Condition Stable Disposition Same day [facility] Billing Surgery - Charge Forward: Surgery Billing
[2025-05-19] MEDS: oxyCODONE HCL (*CRX) 5 MG TAB IR PO (14:44)
== END 2025-05-19 15:08 | disposition home or self-care (01) ==
PROVIDERS: Anesthesiology; PCP Internal Medicine Geriatric Medicine; Visit Provider Obstetrics & Gynecology
PROC: 0U5B8ZZ Destruction of Endometrium, Via Natural or Artificial Opening Endoscopic (ICD-10-PCS; CPT 58563; principal; 2025-05-19 13:30)
DX: N84.0 Polyp of corpus uteri (principal); F41.9 Anxiety disorder, unspecified; F17.210 Nicotine dependence, cigarettes, uncomplicated; E66.9 Obesity, unspecified; Z68.32 Body mass index [BMI] 32.0-32.9, adult; Z79.1 Long term (current) use of non-steroidal anti-inflammatories (NSAID)
CPT/HCPCS: 58563; J0690; A9270; J1100; J1885; J2003; J2250; J2405; J2704; J3010; J7120